=== PATIENT | male | born 1955 | race Caucasian/White ===

== ENCOUNTER 2018-01-23 16:17 | Inpatient (IN) | payer MEDICAID ==
[~2018-01-23] VITALS: Ht 182.9 cm; Wt 74.1 kg
[2018-01-23] MEDS ORDERED: normal saline 1000ML IV soln IV ONE (18:10)
[2018-01-23] MEDS ORDERED: morphine 4 MG/ML inj SYRINge IV ONE (18:10)
[2018-01-23] MEDS ORDERED: ondansetron/PF 4mg/2ml inj IV ONE (18:10)
[2018-01-23 19:08] LABS: BASOPHILS % (AUTO) 0.7 % (0-1); EOSINOPHILS # (AUTO) 0.1 X10'3 (0-0.9); EOSINOPHILS % (AUTO) 1.2 % (0-6); HEMATOCRIT 32.9 % (42.0-52.0); HEMOGLOBIN 11.3 g/dl (14.0-17.9); LYMPHOCYTES # (AUTO) 2.3 X10'3 (1.1-4.8); LYMPHOCYTES % (AUTO) 30.7 % (21-51); MEAN CORPUSCULAR HEMOGLOBIN 30.3 PG (27.0-31.0); MEAN CORPUSCULAR HGB CONC 34.2 % (33.0-36.5); MEAN CORPUSCULAR VOLUME 88.6 FL (78-98); MEAN PLATELET VOLUME 6.9 FL (7.4-10.4); MONOCYTES # (AUTO) 0.5 X10'3 (0-0.9); MONOCYTES % (AUTO) 6.5 % (2-12); NEUTROPHILS # (AUTO) 4.5 X10'3 (1.8-7.7); NEUTROPHILS % (AUTO) 60.9 % (42-75); PLATELET COUNT 350 X10'3 (140-440); RED BLOOD COUNT 3.71 X10'6 (4.70-6.10); RED CELL DISTRIBUTION WIDTH 14.9 % (11.5-14.5); WHITE BLOOD COUNT 7.4 X10'3 (4.5-11.0)
[2018-01-23 19:20] LABS: PARTIAL THROMBOPLASTIN TIME 28 SECONDS (22-32)
[2018-01-23 19:24] LABS: ALANINE AMINOTRANSFERASE 14 U/L (12-78); ALBUMIN 2.7 G/DL (3.4-5.0); ALBUMIN/GLOBULIN RATIO 0.5 (1.1-1.5); ALKALINE PHOSPHATASE 118 IU/L (46-116); ANION GAP 10 (8-16); ASPARTATE AMINO TRANSFERASE 26 U/L (10-37); BILIRUBIN,TOTAL 0.3 MG/DL (0.1-1.0); BLOOD UREA NITROGEN 10 MG/DL (7-18); BUN/CREATININE RATIO 7.7 (5.4-32.0); CALCIUM 8.7 MG/DL (8.5-10.1); CHLORIDE 101 MMOL/L (99-107); ETHANOL 0.125 GM/DL (0.0-0.010); GLUCOSE 93 MG/DL (70-104); MAGNESIUM 1.6 MG/DL (1.5-2.4); POTASSIUM 4.4 MMOL/L (3.5-5.1); SODIUM 137 MMOL/L (135-145); TOTAL CARBON DIOXIDE 26.2 MMOL/L (24-32); TOTAL PROTEIN 8.4 G/DL (6.4-8.2); eGFR 56 ML/MIN
[2018-01-23] MEDS ORDERED: NO HOME MEDS (19:58)
[2018-01-23] MEDS ORDERED: CefTRIAXone 2gm/NS 100ml IVPB 100 ML IV ONE (20:10)
[2018-01-23] MEDS ORDERED: vancomycin/NS 1 GM ADD-VANTAGE 250 ML X 1 DOSE IV ONE (20:15)
[2018-01-23] MEDS ORDERED: thiamine 100mg/ml 2ml inj. IV ONE (22:10)
[2018-01-23] MEDS ORDERED: acetaminophen 650mg rectal suppository RC PRN (22:10)
[2018-01-23] MEDS ORDERED: ondansetron/PF 4mg/2ml inj IV PRN (22:10)
[2018-01-23] MEDS ORDERED: magnesium hydroxide 30ml (MOM) UD suspension PO PRN (22:10)
[2018-01-23] MEDS ORDERED: bisacodyl 10mg suppository rectal RC PRN (22:10)
[2018-01-23] MEDS ORDERED: diphenhydrAMINE 25mg capsule PO PRN (22:10)
[2018-01-23] MEDS ORDERED: morphine 2 MG/ML inj. syringe IV PRN ×2 (22:10)
[2018-01-23] MEDS ORDERED: diphenhydrAMINE 50 mg/ml inj IV PRN (22:10)
[2018-01-23] MEDS ORDERED: dextrose 50%-water 50ml dispensing syringe IV PRN (22:10)
[2018-01-23] MEDS ORDERED: mag hydrox/Alum hydrox/simeth 30ml oral suspension PO PRN (22:10)
[2018-01-23] MEDS ORDERED: acetaminophen 325mg tablet PO PRN ×2 (22:10)
[2018-01-23] MEDS ORDERED: haloperidol 5mg tablet PO PRN (22:10)
[2018-01-23] MEDS ORDERED: metoclopramide 5 mg/ml inj IV PRN (22:10)
[2018-01-23] MEDS ORDERED: haloperidol lactate 5mg/ml inj IM PRN (22:10)
[2018-01-23] MEDS ORDERED: HYDROmorphone inj. 0.5 MG/0.5 ML DISP.SYRIN IV PRN ×2 (22:10)
[2018-01-23] MEDS ORDERED: Permethrin Cream 60gm TP ONE (22:15)
[2018-01-23] MEDS: normal saline 1000ml 1,000 ML IV SCH (22:26)
[2018-01-23 22:43] LABS: PHOSPHORUS 3.3 MG/DL (2.3-4.5)
[2018-01-23 22:58] LABS: CLARITY,URINE Clear (Clear); COLOR,URINE Yellow (Yellow); GLUCOSE, URINE Negative (Neg); KETONES,URINE Negative (Neg); LEUKOCYTE ESTERASE ,URINE Large (Neg); NITRITES, URINE Negative (Neg); OCCULT BLOOD,URINE Moderate (Neg); PROTEIN,URINE Negative (Neg); UROBILINOGEN,URINE 0.2 E.U/dL (0.2-1.0)
[2018-01-23 23:04] LABS: UA COLLECTION TYPE URINAL
[2018-01-23 23:11] LABS: URINE AMPHETAMINE SCREEN NEGATIVE (Neg); URINE BARBITUATE SCREEN NEGATIVE (Neg); URINE BENZODIAZEPINES SCREEN NEGATIVE (Neg); URINE CANNABINOID SCREEN NEGATIVE (Neg); URINE COCAINE SCREEN NEGATIVE (Neg); URINE METHADONE SCREEN NEGATIVE (Neg); URINE OPIATE SCREEN POSITIVE (Neg); URINE PHENCYCLIDINE SCREEN NEGATIVE (Neg)
[2018-01-23 23:14] LABS: BACTERIA,URINE FEW /HPF (Neg); MUCUS STRANDS NONE SEEN /LPF (Neg); SQUAMOUS EPITHELIAL CELL,UR FEW /LPF (FEW)
[2018-01-24] MEDS: normal saline 1000ml 1,000 ML IV SCH ×2 (01:43→15:06)
[2018-01-24] MEDS ORDERED: piperacillin/tazo 4.5gm/100ml 100 ML IV ONE (01:43)
[2018-01-24] MEDS: piperacillin/tazo 4.5gm/100ml 100 ML IV SCH ×3 (01:52→15:06)
[2018-01-24 03:21] VITALS: BP 139/83
[2018-01-24 06:11] LABS: BASOPHILS # (AUTO) 0.1 X10'3 (0-0.2); BASOPHILS % (AUTO) 0.8 % (0-1); EOSINOPHILS # (AUTO) 0.1 X10'3 (0-0.9); EOSINOPHILS % (AUTO) 1.9 % (0-6); HEMOGLOBIN 9.4 g/dl (14.0-17.9); LYMPHOCYTES # (AUTO) 1.8 X10'3 (1.1-4.8); LYMPHOCYTES % (AUTO) 26.4 % (21-51); MEAN CORPUSCULAR HEMOGLOBIN 30.8 PG (27.0-31.0); MEAN CORPUSCULAR HGB CONC 34.9 % (33.0-36.5); MEAN CORPUSCULAR VOLUME 88.3 FL (78-98); MEAN PLATELET VOLUME 6.9 FL (7.4-10.4); MONOCYTES # (AUTO) 0.6 X10'3 (0-0.9); MONOCYTES % (AUTO) 9.3 % (2-12); NEUTROPHILS # (AUTO) 4.1 X10'3 (1.8-7.7); NEUTROPHILS % (AUTO) 61.6 % (42-75); PLATELET COUNT 269 X10'3 (140-440); RED BLOOD COUNT 3.06 X10'6 (4.70-6.10); RED CELL DISTRIBUTION WIDTH 15.1 % (11.5-14.5); WHITE BLOOD COUNT 6.7 X10'3 (4.5-11.0)
[2018-01-24 06:27] LABS: ALANINE AMINOTRANSFERASE 13 U/L (12-78); ALBUMIN/GLOBULIN RATIO 0.4 (1.1-1.5); ALKALINE PHOSPHATASE 88 IU/L (46-116); ANION GAP 8 (8-16); ASPARTATE AMINO TRANSFERASE 19 U/L (10-37); BILIRUBIN,TOTAL 0.3 MG/DL (0.1-1.0); BLOOD UREA NITROGEN 9 MG/DL (7-18); CALCIUM 7.8 MG/DL (8.5-10.1); CHLORIDE 107 MMOL/L (99-107); CREATININE 1.12 MG/DL (0.60-1.10); GLUCOSE 94 MG/DL (70-104); SODIUM 141 MMOL/L (135-145); TOTAL CARBON DIOXIDE 25.7 MMOL/L (24-32); TOTAL PROTEIN 6.5 G/DL (6.4-8.2); eGFR 66 ML/MIN
[2018-01-24 07:01] VITALS: BP 145/80
[2018-01-24] MEDS: heparin, porcine 5000 units/ml vial SQ SCH ×2 (08:40→20:45)
[2018-01-24] MEDS: pantoprazole 40mg Tablet.DR PO SCH (08:40)
[2018-01-24] MEDS: docusate sod 100mg capsule PO SCH ×2 (08:40→20:44)
[2018-01-24] MEDS: HYDROcodone/acetaminophen 10/325mg tab PO PRN ×2 (08:59→17:27)
[2018-01-24] MEDS: vancomycin/NS 1 GM ADD-VANTAGE 250 ML IV SCH ×2 (10:15→20:44)
[2018-01-24 11:00] VITALS: BP 145/78
[2018-01-24] MEDS ORDERED: folic acid 1mg tablet PO ONE (15:30)
[2018-01-24] MEDS ORDERED: Ivermectin 3mg tablet PO SCH (15:30)
[2018-01-24] MEDS ORDERED: thiamine 100mg tablet PO ONE (15:30)
[2018-01-24] MEDS: lactobacillus rhamnosus 10,000 MMU CELLS/CAPSULE PO SCH (17:20)
[2018-01-24 19:30] VITALS: BP 153/86
[2018-01-25] VITALS: BP 151/92
[2018-01-25] MEDS: piperacillin/tazo 4.5gm/100ml 100 ML IV SCH ×3 (00:06→16:45)
[2018-01-25] MEDS: temazepam 15mg capsule PO PRN (00:49)
[2018-01-25] MEDS: HYDROcodone/acetaminophen 10/325mg tab PO PRN ×3 (00:50→16:45)
[2018-01-25] MEDS: normal saline 1000ml 1,000 ML IV SCH ×3 (04:38→17:45)
[2018-01-25 07:00] VITALS: BP 146/90
[2018-01-25] MEDS ORDERED: VANCOMYCIN LEVEL IV ONE (07:30)
[2018-01-25] MEDS: heparin, porcine 5000 units/ml vial SQ SCH ×2 (08:00→19:47)
[2018-01-25] MEDS: docusate sod 100mg capsule PO SCH ×2 (08:46→19:46)
[2018-01-25] MEDS: thiamine 100mg tablet PO SCH (08:46)
[2018-01-25] MEDS: folic acid 1mg tablet PO SCH (08:46)
[2018-01-25] MEDS: LORazepam 2 mg/ml vial IV PRN ×2 (08:51→19:47)
[2018-01-25] MEDS: lactobacillus rhamnosus 10,000 MMU CELLS/CAPSULE PO SCH ×2 (08:58→16:45)
[2018-01-25] MEDS: pantoprazole 40mg Tablet.DR PO SCH (08:59)
[2018-01-25 09:38] LABS: ALANINE AMINOTRANSFERASE 7 U/L (12-78); ALBUMIN 2.1 G/DL (3.4-5.0); ALBUMIN/GLOBULIN RATIO 0.4 (1.1-1.5); ALKALINE PHOSPHATASE 80 IU/L (46-116); ANION GAP 9 (8-16); ASPARTATE AMINO TRANSFERASE 20 U/L (10-37); BILIRUBIN,TOTAL 0.4 MG/DL (0.1-1.0); BLOOD UREA NITROGEN 9 MG/DL (7-18); BUN/CREATININE RATIO 7.3 (5.4-32.0); CALCIUM 8.1 MG/DL (8.5-10.1); CHLORIDE 106 MMOL/L (99-107); CREATININE 1.23 MG/DL (0.60-1.10); GLUCOSE 126 MG/DL (70-104); POTASSIUM 3.7 MMOL/L (3.5-5.1); SODIUM 140 MMOL/L (135-145); TOTAL PROTEIN 6.8 G/DL (6.4-8.2); VANCOMYCIN,TROUGH 16.9 UG/ML (6.0-14.0); eGFR 59 ML/MIN
[2018-01-25] MEDS: vancomycin/NS 1 GM ADD-VANTAGE 250 ML IV SCH ×2 (09:49→19:46)
[2018-01-25 09:50] LABS: BASOPHILS % (AUTO) 0.6 % (0-1); EOSINOPHILS # (AUTO) 0.3 X10'3 (0-0.9); EOSINOPHILS % (AUTO) 4.8 % (0-6); HEMATOCRIT 28.1 % (42.0-52.0); HEMOGLOBIN 9.4 g/dl (14.0-17.9); LYMPHOCYTES # (AUTO) 1.3 X10'3 (1.1-4.8); MEAN CORPUSCULAR HEMOGLOBIN 30.3 PG (27.0-31.0); MEAN CORPUSCULAR HGB CONC 33.4 % (33.0-36.5); MEAN CORPUSCULAR VOLUME 90.5 FL (78-98); MEAN PLATELET VOLUME 7.4 FL (7.4-10.4); MONOCYTES # (AUTO) 0.4 X10'3 (0-0.9); MONOCYTES % (AUTO) 6.6 % (2-12); NEUTROPHILS # (AUTO) 3.8 X10'3 (1.8-7.7); PLATELET COUNT 270 X10'3 (140-440); RED BLOOD COUNT 3.11 X10'6 (4.70-6.10); RED CELL DISTRIBUTION WIDTH 14.6 % (11.5-14.5); WHITE BLOOD COUNT 5.7 X10'3 (4.5-11.0)
[2018-01-25 11:00] VITALS: BP 146/79
[2018-01-25] MEDS ORDERED: Ivermectin 3mg tablet PO ONE (15:50)
[2018-01-25] MEDS ORDERED: gadopentetate dimeglumine 7.5 MMOL/15 ML syringe ONE (15:59)
[2018-01-25 18:04] LABS: % IRON SATURATION 9 % (11-46); IRON 19 UG/DL (53-167); TOTAL IRON BINDING CAPACITY 205 UG/DL (259-388)
[2018-01-25 19:00] VITALS: BP 168/104
[2018-01-25] MEDS ORDERED: LORazepam 2 mg/ml vial IV PRN (22:10)
[2018-01-25] MEDS ORDERED: LORazepam 1 MG tablet PO PRN (22:10)
[2018-01-26 00:33] VITALS: BP 147/97
[2018-01-26] MEDS: normal saline 1000ml 1,000 ML IV SCH ×2 (05:55→16:47)
[2018-01-26 06:43] LABS: ALANINE AMINOTRANSFERASE 12 U/L (12-78); ALBUMIN 2.1 G/DL (3.4-5.0); ALBUMIN/GLOBULIN RATIO 0.5 (1.1-1.5); ALKALINE PHOSPHATASE 68 IU/L (46-116); ANION GAP 8 (8-16); ASPARTATE AMINO TRANSFERASE 19 U/L (10-37); BILIRUBIN,TOTAL 0.4 MG/DL (0.1-1.0); BLOOD UREA NITROGEN 8 MG/DL (7-18); BUN/CREATININE RATIO 6.3 (5.4-32.0); CALCIUM 8.1 MG/DL (8.5-10.1); CHLORIDE 106 MMOL/L (99-107); CREATININE 1.27 MG/DL (0.60-1.10); GLUCOSE 101 MG/DL (70-104); POTASSIUM 3.7 MMOL/L (3.5-5.1); SODIUM 139 MMOL/L (135-145); TOTAL CARBON DIOXIDE 25.1 MMOL/L (24-32); TOTAL PROTEIN 6.7 G/DL (6.4-8.2); eGFR 57 ML/MIN
[2018-01-26 06:51] LABS: BASOPHILS % (AUTO) 0.5 % (0-1); EOSINOPHILS # (AUTO) 0.4 X10'3 (0-0.9); EOSINOPHILS % (AUTO) 5.3 % (0-6); HEMATOCRIT 27.5 % (42.0-52.0); HEMOGLOBIN 9.3 g/dl (14.0-17.9); LYMPHOCYTES # (AUTO) 1.5 X10'3 (1.1-4.8); MEAN CORPUSCULAR HEMOGLOBIN 30.3 PG (27.0-31.0); MEAN CORPUSCULAR HGB CONC 33.7 % (33.0-36.5); MEAN CORPUSCULAR VOLUME 89.9 FL (78-98); MEAN PLATELET VOLUME 7.1 FL (7.4-10.4); MONOCYTES # (AUTO) 0.4 X10'3 (0-0.9); MONOCYTES % (AUTO) 5.1 % (2-12); NEUTROPHILS % (AUTO) 69.1 % (42-75); PLATELET COUNT 266 X10'3 (140-440); RED BLOOD COUNT 3.05 X10'6 (4.70-6.10); RED CELL DISTRIBUTION WIDTH 14.6 % (11.5-14.5); WHITE BLOOD COUNT 7.3 X10'3 (4.5-11.0)
[2018-01-26 07:30] VITALS: BP 167/114
[2018-01-26] MEDS: lactobacillus rhamnosus 10,000 MMU CELLS/CAPSULE PO SCH ×2 (07:42→20:54)
[2018-01-26] MEDS: docusate sod 100mg capsule PO SCH ×2 (07:42→20:54)
[2018-01-26] MEDS: pantoprazole 40mg Tablet.DR PO SCH (07:42)
[2018-01-26] MEDS: piperacillin/tazo 4.5gm/100ml 100 ML IV SCH ×3 (07:42→16:47)
[2018-01-26] MEDS: thiamine 100mg tablet PO SCH (07:43)
[2018-01-26] MEDS: folic acid 1mg tablet PO SCH (07:43)
[2018-01-26] MEDS: heparin, porcine 5000 units/ml vial SQ SCH ×2 (07:44→20:54)
[2018-01-26] MEDS: amLODIPine 5mg tablet PO SCH (07:50)
[2018-01-26] MEDS: vancomycin/NS 1 GM ADD-VANTAGE 250 ML IV SCH ×2 (11:29→20:53)
[2018-01-26 12:00] VITALS: BP 147/69
[2018-01-26 19:00] VITALS: BP 161/100
[2018-01-26] MEDS: cloNIDine 0.1 mg tablet PO PRN (19:13)
[2018-01-26] MEDS: HYDROcodone/acetaminophen 10/325mg tab PO PRN (19:13)
[2018-01-26] MEDS: temazepam 15mg capsule PO PRN (22:22)
[2018-01-27] VITALS: BP 138/87
[2018-01-27] MEDS: piperacillin/tazo 4.5gm/100ml 100 ML IV SCH ×4 (00:24→23:54)
[2018-01-27] MEDS: normal saline 1000ml 1,000 ML IV SCH ×2 (05:05→17:35)
[2018-01-27 05:59] LABS: BASOPHILS % (AUTO) 0.5 % (0-1); EOSINOPHILS # (AUTO) 0.4 X10'3 (0-0.9); EOSINOPHILS % (AUTO) 5.4 % (0-6); HEMATOCRIT 25.7 % (42.0-52.0); HEMOGLOBIN 8.9 g/dl (14.0-17.9); LYMPHOCYTES # (AUTO) 1.7 X10'3 (1.1-4.8); LYMPHOCYTES % (AUTO) 24.1 % (21-51); MEAN CORPUSCULAR HEMOGLOBIN 30.6 PG (27.0-31.0); MEAN CORPUSCULAR HGB CONC 34.6 % (33.0-36.5); MEAN CORPUSCULAR VOLUME 88.3 FL (78-98); MEAN PLATELET VOLUME 6.7 FL (7.4-10.4); MONOCYTES # (AUTO) 0.4 X10'3 (0-0.9); NEUTROPHILS # (AUTO) 4.5 X10'3 (1.8-7.7); PLATELET COUNT 304 X10'3 (140-440); RED BLOOD COUNT 2.92 X10'6 (4.70-6.10); RED CELL DISTRIBUTION WIDTH 14.6 % (11.5-14.5)
[2018-01-27 07:06] LABS: ALANINE AMINOTRANSFERASE 7 U/L (12-78); ALBUMIN/GLOBULIN RATIO 0.4 (1.1-1.5); ALKALINE PHOSPHATASE 59 IU/L (46-116); ANION GAP 9 (8-16); ASPARTATE AMINO TRANSFERASE 19 U/L (10-37); BILIRUBIN,TOTAL 0.4 MG/DL (0.1-1.0); BLOOD UREA NITROGEN 6 MG/DL (7-18); BUN/CREATININE RATIO 5.1 (5.4-32.0); CALCIUM 8.1 MG/DL (8.5-10.1); CHLORIDE 106 MMOL/L (99-107); CREATININE 1.18 MG/DL (0.60-1.10); GLUCOSE 89 MG/DL (70-104); POTASSIUM 3.2 MMOL/L (3.5-5.1); SODIUM 141 MMOL/L (135-145); TOTAL PROTEIN 6.9 G/DL (6.4-8.2); eGFR 62 ML/MIN
[2018-01-27 07:23] VITALS: BP 137/83
[2018-01-27] MEDS: docusate sod 100mg capsule PO SCH ×2 (08:47→20:44)
[2018-01-27] MEDS: folic acid 1mg tablet PO SCH (08:47)
[2018-01-27] MEDS: lactobacillus rhamnosus 10,000 MMU CELLS/CAPSULE PO SCH ×2 (08:47→20:44)
[2018-01-27] MEDS: thiamine 100mg tablet PO SCH (08:47)
[2018-01-27] MEDS: amLODIPine 5mg tablet PO SCH (08:47)
[2018-01-27] MEDS: heparin, porcine 5000 units/ml vial SQ SCH ×2 (08:48→20:45)
[2018-01-27] MEDS: HYDROcodone/acetaminophen 10/325mg tab PO PRN ×2 (08:54→18:34)
[2018-01-27] MEDS: pantoprazole 40mg Tablet.DR PO SCH (08:54)
[2018-01-27] MEDS: vancomycin/NS 1 GM ADD-VANTAGE 250 ML IV SCH ×2 (10:34→20:43)
[2018-01-27 11:32] VITALS: BP 151/95
[2018-01-27] MEDS ORDERED: magnesium 4gm in 100ml NS 100 ML IV PRN (18:05)
[2018-01-27] MEDS ORDERED: potassium Cl 20 mEq SR tablet PO PRN (18:05)
[2018-01-27] MEDS ORDERED: potassium Cl 40MEQ/NS 500ml 500 ML IV PRN ×2 (18:05)
[2018-01-27] MEDS ORDERED: magnesium 2GM in 50ml NS 50 ML IV PRN (18:05)
[2018-01-27 19:00] VITALS: BP 161/104
[2018-01-27] MEDS ORDERED: potassium chloride 8mEq ER tablet PO ONE (20:00)
[2018-01-27] MEDS: cloNIDine 0.1 mg tablet PO PRN (20:44)
[2018-01-27] MEDS ORDERED: LORazepam 1 MG tablet PO PRN (22:10)
[2018-01-27] MEDS ORDERED: LORazepam 2 mg/ml vial IV PRN (22:10)
[2018-01-27] MEDS: HYDROcodone/acetaminophen 5mg/325mg tablet PO PRN (23:56)
[2018-01-28] VITALS: BP 137/99
[2018-01-28] MEDS: normal saline 1000ml 1,000 ML IV SCH ×2 (05:15→12:06)
[2018-01-28 05:51] LABS: BASOPHILS % (AUTO) 0.7 % (0-1); EOSINOPHILS # (AUTO) 0.4 X10'3 (0-0.9); EOSINOPHILS % (AUTO) 6.9 % (0-6); HEMATOCRIT 25.1 % (42.0-52.0); HEMOGLOBIN 8.6 g/dl (14.0-17.9); LYMPHOCYTES # (AUTO) 1.8 X10'3 (1.1-4.8); LYMPHOCYTES % (AUTO) 31.9 % (21-51); MEAN CORPUSCULAR HEMOGLOBIN 30.6 PG (27.0-31.0); MEAN CORPUSCULAR HGB CONC 34.3 % (33.0-36.5); MEAN CORPUSCULAR VOLUME 89.3 FL (78-98); MEAN PLATELET VOLUME 6.9 FL (7.4-10.4); MONOCYTES # (AUTO) 0.4 X10'3 (0-0.9); MONOCYTES % (AUTO) 7.1 % (2-12); NEUTROPHILS % (AUTO) 53.4 % (42-75); PLATELET COUNT 286 X10'3 (140-440); RED BLOOD COUNT 2.81 X10'6 (4.70-6.10); RED CELL DISTRIBUTION WIDTH 14.7 % (11.5-14.5); WHITE BLOOD COUNT 5.6 X10'3 (4.5-11.0)
[2018-01-28 06:30] LABS: ALANINE AMINOTRANSFERASE 13 U/L (12-78); ALBUMIN/GLOBULIN RATIO 0.5 (1.1-1.5); ALKALINE PHOSPHATASE 55 IU/L (46-116); ANION GAP 11 (8-16); ASPARTATE AMINO TRANSFERASE 19 U/L (10-37); BILIRUBIN,TOTAL 0.4 MG/DL (0.1-1.0); BLOOD UREA NITROGEN 6 MG/DL (7-18); BUN/CREATININE RATIO 5.5 (5.4-32.0); CALCIUM 7.7 MG/DL (8.5-10.1); CHLORIDE 107 MMOL/L (99-107); GLUCOSE 82 MG/DL (70-104); MAGNESIUM 1.4 MG/DL (1.5-2.4); POTASSIUM 3.4 MMOL/L (3.5-5.1); SODIUM 142 MMOL/L (135-145); TOTAL PROTEIN 6.4 G/DL (6.4-8.2); eGFR 68 ML/MIN
[2018-01-28 07:33] VITALS: BP 154/64
[2018-01-28] MEDS: HYDROcodone/acetaminophen 10/325mg tab PO PRN ×3 (07:46→20:06)
[2018-01-28] MEDS: thiamine 100mg tablet PO SCH (07:46)
[2018-01-28] MEDS: docusate sod 100mg capsule PO SCH ×2 (07:46→20:07)
[2018-01-28] MEDS: lactobacillus rhamnosus 10,000 MMU CELLS/CAPSULE PO SCH ×2 (07:46→20:06)
[2018-01-28] MEDS: pantoprazole 40mg Tablet.DR PO SCH (07:46)
[2018-01-28] MEDS: amLODIPine 5mg tablet PO SCH (07:46)
[2018-01-28] MEDS: folic acid 1mg tablet PO SCH (07:46)
[2018-01-28] MEDS: piperacillin/tazo 4.5gm/100ml 100 ML IV SCH ×3 (07:46→23:55)
[2018-01-28] MEDS: heparin, porcine 5000 units/ml vial SQ SCH ×2 (07:47→20:07)
[2018-01-28] MEDS: potassium Cl 20 mEq SR tablet PO PRN ×3 (10:03→20:06)
[2018-01-28] MEDS: magnesium Cl slow-release 64mg tablet PO PRN ×2 (10:03→20:14)
[2018-01-28] MEDS: vancomycin/NS 1 GM ADD-VANTAGE 250 ML IV SCH ×2 (10:03→20:06)
[2018-01-28 11:39] VITALS: BP 133/80
[2018-01-28 19:00] VITALS: BP 148/98
[2018-01-29] VITALS: BP 148/92
[2018-01-29] MEDS: normal saline 1000ml 1,000 ML IV SCH ×3 (05:53→22:58)
[2018-01-29 07:00] VITALS: BP 161/101
[2018-01-29 08:05] LABS: MAGNESIUM 1.5 MG/DL (1.5-2.4)
[2018-01-29] MEDS: amLODIPine 5mg tablet PO SCH (08:37)
[2018-01-29] MEDS: folic acid 1mg tablet PO SCH (08:37)
[2018-01-29] MEDS: lactobacillus rhamnosus 10,000 MMU CELLS/CAPSULE PO SCH ×2 (08:37→20:50)
[2018-01-29] MEDS: piperacillin/tazo 4.5gm/100ml 100 ML IV SCH ×3 (08:37→23:33)
[2018-01-29] MEDS: thiamine 100mg tablet PO SCH (08:37)
[2018-01-29] MEDS: pantoprazole 40mg Tablet.DR PO SCH (08:37)
[2018-01-29] MEDS: docusate sod 100mg capsule PO SCH ×2 (08:37→20:00)
[2018-01-29] MEDS: heparin, porcine 5000 units/ml vial SQ SCH ×2 (08:38→20:51)
[2018-01-29] MEDS: vancomycin/NS 1 GM ADD-VANTAGE 250 ML IV SCH ×2 (08:38→20:50)
[2018-01-29] MEDS: HYDROcodone/acetaminophen 10/325mg tab PO PRN (10:41)
[2018-01-29 11:00] VITALS: BP 108/66
[2018-01-29] MEDS ORDERED: magnesium 2GM in 50ml NS 50 ML IV ONE (12:35)
[2018-01-29] MEDS: potassium Cl 20 mEq SR tablet PO PRN (13:47)
[2018-01-29 19:30] VITALS: BP 159/89
[2018-01-29] MEDS: temazepam 15mg capsule PO PRN (23:12)
[2018-01-29] MEDS: HYDROcodone/acetaminophen 5mg/325mg tablet PO PRN (23:12)
[2018-01-30] VITALS: BP 156/90
[2018-01-30] MEDS: normal saline 1000ml 1,000 ML IV SCH ×2 (04:06→14:10)
[2018-01-30 06:40] LABS: MAGNESIUM 1.7 MG/DL (1.5-2.4); POTASSIUM 3.9 MMOL/L (3.5-5.1)
[2018-01-30 07:00] VITALS: BP 154/100
[2018-01-30] MEDS: amLODIPine 5mg tablet PO SCH (07:45)
[2018-01-30] MEDS: piperacillin/tazo 4.5gm/100ml 100 ML IV SCH ×2 (07:46→16:09)
[2018-01-30] MEDS: vancomycin/NS 1 GM ADD-VANTAGE 250 ML IV SCH ×2 (07:46→21:35)
[2018-01-30] MEDS: docusate sod 100mg capsule PO SCH ×2 (07:46→21:39)
[2018-01-30] MEDS: folic acid 1mg tablet PO SCH (07:46)
[2018-01-30] MEDS: thiamine 100mg tablet PO SCH (07:46)
[2018-01-30] MEDS: lactobacillus rhamnosus 10,000 MMU CELLS/CAPSULE PO SCH ×2 (07:46→21:38)
[2018-01-30] MEDS: pantoprazole 40mg Tablet.DR PO SCH (07:46)
[2018-01-30] MEDS: heparin, porcine 5000 units/ml vial SQ SCH ×2 (07:47→21:41)
[2018-01-30] MEDS: HYDROcodone/acetaminophen 5mg/325mg tablet PO PRN ×2 (08:24→14:09)
[2018-01-30 11:00] VITALS: BP 144/86
[2018-01-30] MEDS: HYDROcodone/acetaminophen 10/325mg tab PO PRN (21:47)
[2018-01-30] MEDS: temazepam 15mg capsule PO PRN (21:47)
[2018-01-31] VITALS: BP 140/94
[2018-01-31] MEDS: normal saline 1000ml 1,000 ML IV SCH ×3 (00:06→17:52)
[2018-01-31] MEDS: piperacillin/tazo 4.5gm/100ml 100 ML IV SCH ×3 (00:27→15:46)
[2018-01-31 03:56] VITALS: BP 149/83
[2018-01-31 07:00] VITALS: BP 158/97
[2018-01-31] MEDS: docusate sod 100mg capsule PO SCH ×2 (07:50→20:00)
[2018-01-31] MEDS: lactobacillus rhamnosus 10,000 MMU CELLS/CAPSULE PO SCH ×2 (08:00→20:18)
[2018-01-31] MEDS: amLODIPine 5mg tablet PO SCH (08:00)
[2018-01-31] MEDS: thiamine 100mg tablet PO SCH (08:00)
[2018-01-31] MEDS: pantoprazole 40mg Tablet.DR PO SCH (08:01)
[2018-01-31] MEDS: HYDROcodone/acetaminophen 10/325mg tab PO PRN ×2 (08:01→15:46)
[2018-01-31] MEDS: folic acid 1mg tablet PO SCH (08:01)
[2018-01-31] MEDS: heparin, porcine 5000 units/ml vial SQ SCH ×2 (08:01→20:19)
[2018-01-31] MEDS: vancomycin/NS 1 GM ADD-VANTAGE 250 ML IV SCH ×2 (08:49→20:18)
[2018-01-31 14:34] LABS: ALBUMIN 2.5 G/DL (3.4-5.0); ANION GAP 9 (8-16); BLOOD UREA NITROGEN 5 MG/DL (7-18); CALCIUM 8.6 MG/DL (8.5-10.1); CHLORIDE 105 MMOL/L (99-107); CREATININE 1.25 MG/DL (0.60-1.10); GLUCOSE 108 MG/DL (70-104); MAGNESIUM 1.6 MG/DL (1.5-2.4); POTASSIUM 3.3 MMOL/L (3.5-5.1); SODIUM 140 MMOL/L (135-145); TOTAL CARBON DIOXIDE 25.7 MMOL/L (24-32); eGFR 58 ML/MIN
[2018-01-31] MEDS ORDERED: potassium chloride 8mEq ER tablet PO ONE (14:55)
[2018-01-31] MEDS ORDERED: Ivermectin 3mg tablet PO SCH (16:00)
[2018-01-31 19:30] VITALS: BP 152/71
[2018-02-01] VITALS: BP 151/87
[2018-02-01] MEDS: piperacillin/tazo 4.5gm/100ml 100 ML IV SCH ×4 (00:12→23:54)
[2018-02-01] MEDS: normal saline 1000ml 1,000 ML IV SCH ×3 (06:01→18:06)
[2018-02-01 06:05] LABS: BASOPHILS # (AUTO) 0.1 X10'3 (0-0.2); BASOPHILS % (AUTO) 0.9 % (0-1); EOSINOPHILS # (AUTO) 0.3 X10'3 (0-0.9); HEMATOCRIT 28.9 % (42.0-52.0); HEMOGLOBIN 9.8 g/dl (14.0-17.9); LYMPHOCYTES # (AUTO) 1.8 X10'3 (1.1-4.8); LYMPHOCYTES % (AUTO) 27.6 % (21-51); MEAN CORPUSCULAR HGB CONC 33.8 % (33.0-36.5); MEAN CORPUSCULAR VOLUME 88.8 FL (78-98); MEAN PLATELET VOLUME 6.6 FL (7.4-10.4); MONOCYTES # (AUTO) 0.4 X10'3 (0-0.9); NEUTROPHILS % (AUTO) 60.5 % (42-75); PLATELET COUNT 353 X10'3 (140-440); RED BLOOD COUNT 3.25 X10'6 (4.70-6.10); RED CELL DISTRIBUTION WIDTH 14.2 % (11.5-14.5); WHITE BLOOD COUNT 6.7 X10'3 (4.5-11.0)
[2018-02-01 06:14] LABS: MAGNESIUM 1.5 MG/DL (1.5-2.4); POTASSIUM 3.5 MMOL/L (3.5-5.1)
[2018-02-01 07:00] VITALS: BP 153/85
[2018-02-01] MEDS: pantoprazole 40mg Tablet.DR PO SCH (07:47)
[2018-02-01] MEDS: HYDROcodone/acetaminophen 10/325mg tab PO PRN ×2 (10:02→20:29)
[2018-02-01] MEDS: thiamine 100mg tablet PO SCH (10:02)
[2018-02-01] MEDS: amLODIPine 5mg tablet PO SCH (10:03)
[2018-02-01] MEDS: folic acid 1mg tablet PO SCH (10:03)
[2018-02-01] MEDS: lactobacillus rhamnosus 10,000 MMU CELLS/CAPSULE PO SCH ×2 (10:03→20:30)
[2018-02-01] MEDS: docusate sod 100mg capsule PO SCH ×2 (10:04→20:00)
[2018-02-01] MEDS: vancomycin/NS 1 GM ADD-VANTAGE 250 ML IV SCH ×2 (10:04→20:29)
[2018-02-01] MEDS: heparin, porcine 5000 units/ml vial SQ SCH ×2 (10:07→20:30)
[2018-02-01 11:30] VITALS: BP 153/102
[2018-02-01 20:00] VITALS: BP 163/89
[2018-02-01] MEDS: olanzapine 10mg tablet PO SCH (20:30)
[2018-02-02] VITALS: BP 147/96
[2018-02-02] MEDS: normal saline 1000ml 1,000 ML IV SCH ×2 (05:50→12:30)
[2018-02-02 07:00] VITALS: BP 142/96
[2018-02-02] MEDS: docusate sod 100mg capsule PO SCH ×2 (07:15→20:00)
[2018-02-02] MEDS: pantoprazole 40mg Tablet.DR PO SCH (07:20)
[2018-02-02] MEDS: piperacillin/tazo 4.5gm/100ml 100 ML IV SCH ×2 (07:21→14:58)
[2018-02-02] MEDS: vancomycin/NS 1 GM ADD-VANTAGE 250 ML IV SCH ×2 (08:37→20:20)
[2018-02-02] MEDS: lactobacillus rhamnosus 10,000 MMU CELLS/CAPSULE PO SCH ×2 (08:40→20:20)
[2018-02-02] MEDS: folic acid 1mg tablet PO SCH (08:41)
[2018-02-02] MEDS: thiamine 100mg tablet PO SCH (08:41)
[2018-02-02] MEDS: amLODIPine 5mg tablet PO SCH (08:41)
[2018-02-02] MEDS: HYDROcodone/acetaminophen 10/325mg tab PO PRN ×3 (08:42→20:28)
[2018-02-02] MEDS: heparin, porcine 5000 units/ml vial SQ SCH ×2 (08:44→20:20)
[2018-02-02 11:00] VITALS: BP 122/75
[2018-02-02 20:00] VITALS: BP 151/88
[2018-02-02] MEDS: olanzapine 10mg tablet PO SCH (20:20)
[2018-02-03] VITALS: BP 141/84
[2018-02-03] MEDS: normal saline 1000ml 1,000 ML IV SCH ×2 (00:15→16:28)
[2018-02-03] MEDS: piperacillin/tazo 4.5gm/100ml 100 ML IV SCH ×4 (00:15→23:38)
[2018-02-03 05:42] LABS: ALBUMIN 2.3 G/DL (3.4-5.0); ANION GAP 8 (8-16); BLOOD UREA NITROGEN 11 MG/DL (7-18); CALCIUM 8.7 MG/DL (8.5-10.1); CHLORIDE 108 MMOL/L (99-107); CREATININE 1.58 MG/DL (0.60-1.10); GLUCOSE 94 MG/DL (70-104); POTASSIUM 4.1 MMOL/L (3.5-5.1); SODIUM 140 MMOL/L (135-145); TOTAL CARBON DIOXIDE 24.5 MMOL/L (24-32); eGFR 45 ML/MIN
[2018-02-03 06:56] VITALS: BP 157/96
[2018-02-03] MEDS: folic acid 1mg tablet PO SCH (08:22)
[2018-02-03] MEDS: docusate sod 100mg capsule PO SCH ×2 (08:22→20:29)
[2018-02-03] MEDS: lactobacillus rhamnosus 10,000 MMU CELLS/CAPSULE PO SCH ×2 (08:22→20:30)
[2018-02-03] MEDS: thiamine 100mg tablet PO SCH (08:22)
[2018-02-03] MEDS: pantoprazole 40mg Tablet.DR PO SCH (08:22)
[2018-02-03] MEDS: amLODIPine 5mg tablet PO SCH (08:23)
[2018-02-03] MEDS: heparin, porcine 5000 units/ml vial SQ SCH ×2 (08:24→20:30)
[2018-02-03] MEDS: HYDROcodone/acetaminophen 5mg/325mg tablet PO PRN ×2 (08:30→16:38)
[2018-02-03] MEDS: vancomycin/NS 1 GM ADD-VANTAGE 250 ML IV SCH ×2 (10:01→20:29)
[2018-02-03 11:00] VITALS: BP 161/97
[2018-02-03] MEDS ORDERED: lisinopril 10 MG tablet PO ONE (15:30)
[2018-02-03] MEDS ORDERED: HYDROchlorothiazide 25mg tablet PO ONE (15:30)
[2018-02-03] MEDS ORDERED: VANCOMYCIN LEVEL IV ONE (19:30)
[2018-02-03 20:00] VITALS: BP 151/85
[2018-02-03] MEDS: olanzapine 10mg tablet PO SCH (20:30)
[2018-02-03] MEDS: HYDROcodone/acetaminophen 10/325mg tab PO PRN (22:00)
[2018-02-04] VITALS: BP 153/86
[2018-02-04] MEDS: normal saline 1000ml 1,000 ML IV SCH ×3 (05:42→16:23)
[2018-02-04 07:27] VITALS: BP 160/100
[2018-02-04] MEDS: lisinopril 10 MG tablet PO SCH (08:11)
[2018-02-04] MEDS: piperacillin/tazo 4.5gm/100ml 100 ML IV SCH ×3 (08:11→23:24)
[2018-02-04] MEDS: docusate sod 100mg capsule PO SCH ×2 (08:11→20:04)
[2018-02-04] MEDS: pantoprazole 40mg Tablet.DR PO SCH (08:11)
[2018-02-04] MEDS: amLODIPine 5mg tablet PO SCH (08:12)
[2018-02-04] MEDS: HYDROchlorothiazide 12.5mg capsule PO SCH (08:12)
[2018-02-04] MEDS: thiamine 100mg tablet PO SCH (08:12)
[2018-02-04] MEDS: folic acid 1mg tablet PO SCH (08:12)
[2018-02-04] MEDS: lactobacillus rhamnosus 10,000 MMU CELLS/CAPSULE PO SCH ×2 (08:12→20:04)
[2018-02-04] MEDS: HYDROcodone/acetaminophen 10/325mg tab PO PRN ×2 (08:13→20:04)
[2018-02-04] MEDS: heparin, porcine 5000 units/ml vial SQ SCH ×2 (08:14→20:03)
[2018-02-04 11:24] VITALS: BP 151/102
[2018-02-04 20:00] VITALS: BP 162/90
[2018-02-04] MEDS: olanzapine 10mg tablet PO SCH (20:04)
[2018-02-05] VITALS: BP 139/84
[2018-02-05 07:49] VITALS: BP 143/88
[2018-02-05] MEDS ORDERED: vancomycin/NS 1 GM ADD-VANTAGE 250 ML IV SCH (08:00)
[2018-02-05] MEDS: piperacillin/tazo 4.5gm/100ml 100 ML IV SCH (08:06)
[2018-02-05] MEDS: normal saline 1000ml 1,000 ML IV SCH ×2 (08:06→20:39)
[2018-02-05] MEDS: lisinopril 10 MG tablet PO SCH (08:07)
[2018-02-05] MEDS: lactobacillus rhamnosus 10,000 MMU CELLS/CAPSULE PO SCH ×2 (08:07→19:17)
[2018-02-05] MEDS: HYDROcodone/acetaminophen 5mg/325mg tablet PO PRN (08:07)
[2018-02-05] MEDS: thiamine 100mg tablet PO SCH (08:07)
[2018-02-05] MEDS: docusate sod 100mg capsule PO SCH ×2 (08:08→19:17)
[2018-02-05] MEDS: amLODIPine 5mg tablet PO SCH (08:08)
[2018-02-05] MEDS: pantoprazole 40mg Tablet.DR PO SCH (08:08)
[2018-02-05] MEDS: folic acid 1mg tablet PO SCH (08:08)
[2018-02-05] MEDS: HYDROchlorothiazide 12.5mg capsule PO SCH (08:09)
[2018-02-05] MEDS: vancomycin/NS 1 GM ADD-VANTAGE 250 ML IV SCH (09:23)
[2018-02-05] MEDS: heparin, porcine 5000 units/ml vial SQ SCH ×2 (09:24→19:17)
[2018-02-05 12:04] VITALS: BP 142/94
[2018-02-05] MEDS: metroNIDAZOLE 500mg tablet PO SCH ×2 (13:32→19:12)
[2018-02-05] MEDS: CefTRIAXone 2gm/NS 100ml IVPB 100 ML IV SCH (13:33)
[2018-02-05] MEDS: HYDROcodone/acetaminophen 10/325mg tab PO PRN (19:17)
[2018-02-05 20:00] VITALS: BP 160/97
[2018-02-05] MEDS: olanzapine 10mg tablet PO SCH (20:39)
[2018-02-06] VITALS: BP 151/85
[2018-02-06] MEDS: normal saline 1000ml 1,000 ML IV SCH ×3 (06:06→20:48)
[2018-02-06 06:10] LABS: ALANINE AMINOTRANSFERASE 18 U/L (12-78); ALBUMIN 2.3 G/DL (3.4-5.0); ALBUMIN/GLOBULIN RATIO 0.5 (1.1-1.5); ALKALINE PHOSPHATASE 46 IU/L (46-116); ANION GAP 13 (8-16); ASPARTATE AMINO TRANSFERASE 22 U/L (10-37); BILIRUBIN,TOTAL 0.2 MG/DL (0.1-1.0); BLOOD UREA NITROGEN 9 MG/DL (7-18); BUN/CREATININE RATIO 6.5 (5.4-32.0); CALCIUM 8.9 MG/DL (8.5-10.1); CHLORIDE 107 MMOL/L (99-107); CREATININE 1.39 MG/DL (0.60-1.10); GLUCOSE 115 MG/DL (70-104); POTASSIUM 3.3 MMOL/L (3.5-5.1); SODIUM 143 MMOL/L (135-145); TOTAL CARBON DIOXIDE 23.1 MMOL/L (24-32); TOTAL PROTEIN 7.4 G/DL (6.4-8.2); eGFR 52 ML/MIN
[2018-02-06 07:00] VITALS: BP 148/89
[2018-02-06] MEDS: metroNIDAZOLE 500mg tablet PO SCH ×2 (07:59→19:49)
[2018-02-06] MEDS: CefTRIAXone 2gm/NS 100ml IVPB 100 ML IV SCH (07:59)
[2018-02-06] MEDS: folic acid 1mg tablet PO SCH (07:59)
[2018-02-06] MEDS: thiamine 100mg tablet PO SCH (07:59)
[2018-02-06] MEDS: pantoprazole 40mg Tablet.DR PO SCH (07:59)
[2018-02-06] MEDS: lisinopril 10 MG tablet PO SCH (08:00)
[2018-02-06] MEDS: HYDROcodone/acetaminophen 10/325mg tab PO PRN ×2 (08:00→17:33)
[2018-02-06] MEDS: HYDROchlorothiazide 12.5mg capsule PO SCH (08:00)
[2018-02-06] MEDS: lactobacillus rhamnosus 10,000 MMU CELLS/CAPSULE PO SCH ×2 (08:00→19:50)
[2018-02-06] MEDS: docusate sod 100mg capsule PO SCH ×2 (08:00→19:50)
[2018-02-06] MEDS: amLODIPine 5mg tablet PO SCH (08:00)
[2018-02-06] MEDS: heparin, porcine 5000 units/ml vial SQ SCH ×2 (08:05→19:49)
[2018-02-06] MEDS: vancomycin/NS 1 GM ADD-VANTAGE 250 ML IV SCH (09:19)
[2018-02-06] MEDS ORDERED: potassium Cl 20 mEq SR tablet PO STA (10:45)
[2018-02-06 11:00] VITALS: BP 150/88
[2018-02-06 11:27] LABS: EOSINOPHILS # (AUTO) 0.2 X10'3 (0-0.9); EOSINOPHILS % (AUTO) 4.3 % (0-6); HEMATOCRIT 28.1 % (42.0-52.0); HEMOGLOBIN 9.6 g/dl (14.0-17.9); LYMPHOCYTES # (AUTO) 1.4 X10'3 (1.1-4.8); LYMPHOCYTES % (AUTO) 29.5 % (21-51); MEAN CORPUSCULAR HEMOGLOBIN 29.8 PG (27.0-31.0); MEAN CORPUSCULAR HGB CONC 34.1 % (33.0-36.5); MEAN CORPUSCULAR VOLUME 87.5 FL (78-98); MEAN PLATELET VOLUME 6.7 FL (7.4-10.4); MONOCYTES # (AUTO) 0.3 X10'3 (0-0.9); MONOCYTES % (AUTO) 5.6 % (2-12); NEUTROPHILS # (AUTO) 2.9 X10'3 (1.8-7.7); NEUTROPHILS % (AUTO) 59.6 % (42-75); PLATELET COUNT 358 X10'3 (140-440); RED BLOOD COUNT 3.21 X10'6 (4.70-6.10); RED CELL DISTRIBUTION WIDTH 13.6 % (11.5-14.5); WHITE BLOOD COUNT 4.9 X10'3 (4.5-11.0)
[2018-02-06] MEDS: olanzapine 10mg tablet PO SCH (19:50)
[2018-02-06 20:00] VITALS: BP 180/111
[2018-02-06] MEDS: cloNIDine 0.1 mg tablet PO PRN (20:48)
[2018-02-07] VITALS: BP 146/91
[2018-02-07 07:00] VITALS: BP 147/87
[2018-02-07] MEDS ORDERED: VANCOMYCIN LEVEL IV ONE (07:30)
[2018-02-07] MEDS: CefTRIAXone 2gm/NS 100ml IVPB 100 ML IV SCH (08:18)
[2018-02-07] MEDS: amLODIPine 5mg tablet PO SCH (09:17)
[2018-02-07] MEDS: HYDROchlorothiazide 12.5mg capsule PO SCH (09:17)
[2018-02-07] MEDS: HYDROcodone/acetaminophen 10/325mg tab PO PRN ×3 (09:17→20:11)
[2018-02-07] MEDS: lactobacillus rhamnosus 10,000 MMU CELLS/CAPSULE PO SCH ×2 (09:17→20:12)
[2018-02-07] MEDS: metroNIDAZOLE 500mg tablet PO SCH ×2 (09:17→20:12)
[2018-02-07] MEDS: lisinopril 10 MG tablet PO SCH (09:17)
[2018-02-07] MEDS: pantoprazole 40mg Tablet.DR PO SCH (09:17)
[2018-02-07] MEDS: thiamine 100mg tablet PO SCH (09:17)
[2018-02-07] MEDS: docusate sod 100mg capsule PO SCH ×2 (09:17→20:00)
[2018-02-07] MEDS: heparin, porcine 5000 units/ml vial SQ SCH ×2 (09:21→20:12)
[2018-02-07] MEDS: folic acid 1mg tablet PO SCH (09:23)
[2018-02-07] MEDS: vancomycin/NS 1 GM ADD-VANTAGE 250 ML IV SCH (09:25)
[2018-02-07 09:56] VITALS: BP 155/89
[2018-02-07] MEDS ORDERED: magnesium 2GM in 50ml NS 50 ML IV PRN (13:00)
[2018-02-07] MEDS: normal saline 1000ml 1,000 ML IV SCH ×2 (13:00→22:06)
[2018-02-07] MEDS ORDERED: potassium Cl 20 mEq SR tablet PO PRN ×2 (13:00)
[2018-02-07] MEDS ORDERED: magnesium 4gm in 100ml NS 100 ML IV PRN (13:00)
[2018-02-07] MEDS ORDERED: potassium Cl 40MEQ/NS 500ml 500 ML IV PRN ×2 (13:00)
[2018-02-07 14:01] VITALS: BP 140/60
[2018-02-07 17:25] LABS: BASOPHILS # (AUTO) 0.1 X10'3 (0-0.2); BASOPHILS % (AUTO) 0.8 % (0-1); EOSINOPHILS # (AUTO) 0.2 X10'3 (0-0.9); EOSINOPHILS % (AUTO) 4.1 % (0-6); HEMATOCRIT 28.6 % (42.0-52.0); HEMOGLOBIN 9.6 g/dl (14.0-17.9); LYMPHOCYTES # (AUTO) 1.4 X10'3 (1.1-4.8); LYMPHOCYTES % (AUTO) 23.6 % (21-51); MEAN CORPUSCULAR HEMOGLOBIN 29.4 PG (27.0-31.0); MEAN CORPUSCULAR HGB CONC 33.7 % (33.0-36.5); MEAN CORPUSCULAR VOLUME 87.3 FL (78-98); MEAN PLATELET VOLUME 6.6 FL (7.4-10.4); MONOCYTES # (AUTO) 0.4 X10'3 (0-0.9); MONOCYTES % (AUTO) 7.1 % (2-12); NEUTROPHILS # (AUTO) 3.9 X10'3 (1.8-7.7); NEUTROPHILS % (AUTO) 64.4 % (42-75); PLATELET COUNT 356 X10'3 (140-440); RED BLOOD COUNT 3.28 X10'6 (4.70-6.10)
[2018-02-07 17:35] LABS: ALBUMIN 2.5 G/DL (3.4-5.0); ANION GAP 8 (8-16); BLOOD UREA NITROGEN 9 MG/DL (7-18); BUN/CREATININE RATIO 7.8 (5.4-32.0); CALCIUM 8.9 MG/DL (8.5-10.1); CHLORIDE 106 MMOL/L (99-107); CREATININE 1.16 MG/DL (0.60-1.10); GLUCOSE 169 MG/DL (70-104); POTASSIUM 3.7 MMOL/L (3.5-5.1); SODIUM 139 MMOL/L (135-145); TOTAL CARBON DIOXIDE 24.9 MMOL/L (24-32); eGFR 64 ML/MIN
[2018-02-07 19:00] VITALS: BP 162/92
[2018-02-07] MEDS: olanzapine 10mg tablet PO SCH (20:12)
[2018-02-07] MEDS: cloNIDine 0.1 mg tablet PO PRN (20:12)
[2018-02-08] VITALS: BP 124/74
[2018-02-08 06:20] LABS: MAGNESIUM 1.2 MG/DL (1.5-2.4); POTASSIUM 3.7 MMOL/L (3.5-5.1)
[2018-02-08 07:27] VITALS: BP 152/92
[2018-02-08] MEDS: normal saline 1000ml 1,000 ML IV SCH ×2 (08:06→13:53)
[2018-02-08] MEDS: CefTRIAXone 2gm/NS 100ml IVPB 100 ML IV SCH (08:31)
[2018-02-08] MEDS: lactobacillus rhamnosus 10,000 MMU CELLS/CAPSULE PO SCH ×2 (08:38→20:30)
[2018-02-08] MEDS: amLODIPine 5mg tablet PO SCH (08:38)
[2018-02-08] MEDS: pantoprazole 40mg Tablet.DR PO SCH (08:39)
[2018-02-08] MEDS: HYDROchlorothiazide 12.5mg capsule PO SCH (08:39)
[2018-02-08] MEDS: metroNIDAZOLE 500mg tablet PO SCH ×2 (08:39→20:30)
[2018-02-08] MEDS: docusate sod 100mg capsule PO SCH ×2 (08:40→20:29)
[2018-02-08] MEDS: lisinopril 10 MG tablet PO SCH (08:40)
[2018-02-08] MEDS: thiamine 100mg tablet PO SCH (08:40)
[2018-02-08] MEDS: folic acid 1mg tablet PO SCH (08:40)
[2018-02-08] MEDS: heparin, porcine 5000 units/ml vial SQ SCH ×2 (08:42→20:31)
[2018-02-08] MEDS: magnesium Cl slow-release 64mg tablet PO PRN ×2 (08:56→20:29)
[2018-02-08] MEDS: HYDROcodone/acetaminophen 10/325mg tab PO PRN (08:57)
[2018-02-08 12:00] VITALS: BP 122/72
[2018-02-08 18:30] VITALS: BP 154/88
[2018-02-08] MEDS: HYDROcodone/acetaminophen 5mg/325mg tablet PO PRN (20:30)
[2018-02-08] MEDS: olanzapine 10mg tablet PO SCH (20:31)
[2018-02-09] VITALS: BP 130/78
[2018-02-09] MEDS: normal saline 1000ml 1,000 ML IV SCH ×2 (00:19→12:31)
[2018-02-09 06:15] LABS: BASOPHILS # (AUTO) 0.1 X10'3 (0-0.2); BASOPHILS % (AUTO) 1.1 % (0-1); EOSINOPHILS # (AUTO) 0.3 X10'3 (0-0.9); EOSINOPHILS % (AUTO) 5.2 % (0-6); HEMATOCRIT 26.4 % (42.0-52.0); LYMPHOCYTES % (AUTO) 33.7 % (21-51); MEAN CORPUSCULAR HEMOGLOBIN 29.2 PG (27.0-31.0); MEAN CORPUSCULAR HGB CONC 33.9 % (33.0-36.5); MEAN CORPUSCULAR VOLUME 86.2 FL (78-98); MEAN PLATELET VOLUME 7.3 FL (7.4-10.4); MONOCYTES # (AUTO) 0.6 X10'3 (0-0.9); MONOCYTES % (AUTO) 10.5 % (2-12); NEUTROPHILS # (AUTO) 2.9 X10'3 (1.8-7.7); NEUTROPHILS % (AUTO) 49.5 % (42-75); PLATELET COUNT 344 X10'3 (140-440); RED BLOOD COUNT 3.07 X10'6 (4.70-6.10); RED CELL DISTRIBUTION WIDTH 13.5 % (11.5-14.5); WHITE BLOOD COUNT 5.8 X10'3 (4.5-11.0)
[2018-02-09 06:35] LABS: ALANINE AMINOTRANSFERASE 13 U/L (12-78); ALBUMIN 2.5 G/DL (3.4-5.0); ALBUMIN/GLOBULIN RATIO 0.5 (1.1-1.5); ALKALINE PHOSPHATASE 45 IU/L (46-116); ANION GAP 12 (8-16); ASPARTATE AMINO TRANSFERASE 31 U/L (10-37); BILIRUBIN,TOTAL 0.2 MG/DL (0.1-1.0); BLOOD UREA NITROGEN 9 MG/DL (7-18); BUN/CREATININE RATIO 7.3 (5.4-32.0); CALCIUM 9.1 MG/DL (8.5-10.1); CHLORIDE 109 MMOL/L (99-107); CREATININE 1.23 MG/DL (0.60-1.10); GLUCOSE 101 MG/DL (70-104); MAGNESIUM 1.4 MG/DL (1.5-2.4); POTASSIUM 3.6 MMOL/L (3.5-5.1); SODIUM 143 MMOL/L (135-145); TOTAL CARBON DIOXIDE 22.1 MMOL/L (24-32); TOTAL PROTEIN 7.5 G/DL (6.4-8.2); eGFR 59 ML/MIN
[2018-02-09 07:29] VITALS: BP 146/85
[2018-02-09] MEDS: amLODIPine 5mg tablet PO SCH (07:43)
[2018-02-09] MEDS: magnesium Cl slow-release 64mg tablet PO PRN ×2 (07:43→22:33)
[2018-02-09] MEDS: docusate sod 100mg capsule PO SCH ×2 (07:43→20:59)
[2018-02-09] MEDS: thiamine 100mg tablet PO SCH (07:43)
[2018-02-09] MEDS: CefTRIAXone 2gm/NS 100ml IVPB 100 ML IV SCH (07:43)
[2018-02-09] MEDS: metroNIDAZOLE 500mg tablet PO SCH ×2 (07:43→20:58)
[2018-02-09] MEDS: lactobacillus rhamnosus 10,000 MMU CELLS/CAPSULE PO SCH ×2 (07:43→20:58)
[2018-02-09] MEDS: pantoprazole 40mg Tablet.DR PO SCH (07:43)
[2018-02-09] MEDS: lisinopril 10 MG tablet PO SCH (07:43)
[2018-02-09] MEDS: HYDROchlorothiazide 12.5mg capsule PO SCH (07:43)
[2018-02-09] MEDS: folic acid 1mg tablet PO SCH (07:43)
[2018-02-09] MEDS: heparin, porcine 5000 units/ml vial SQ SCH ×2 (07:44→20:57)
[2018-02-09] MEDS: HYDROcodone/acetaminophen 10/325mg tab PO PRN (08:02)
[2018-02-09 11:24] VITALS: BP 161/97
[2018-02-09] MEDS ORDERED: hyDRALAzine 10mg tablet PO PRN (11:30)
[2018-02-09] MEDS: mag hydrox/Alum hydrox/simeth 30ml oral suspension PO SCH (12:31)
[2018-02-09 20:00] VITALS: BP 163/89
[2018-02-09] MEDS: HYDROcodone/acetaminophen 5mg/325mg tablet PO PRN (20:58)
[2018-02-09] MEDS: olanzapine 10mg tablet PO SCH (22:09)
[2018-02-10] VITALS: BP 125/65
[2018-02-10] MEDS: normal saline 1000ml 1,000 ML IV SCH ×3 (00:04→23:02)
[2018-02-10 05:43] LABS: MAGNESIUM 1.5 MG/DL (1.5-2.4); POTASSIUM 3.6 MMOL/L (3.5-5.1)
[2018-02-10 07:40] VITALS: BP 154/98
[2018-02-10] MEDS: lactobacillus rhamnosus 10,000 MMU CELLS/CAPSULE PO SCH ×2 (07:57→23:02)
[2018-02-10] MEDS: lisinopril 10 MG tablet PO SCH (07:57)
[2018-02-10] MEDS: folic acid 1mg tablet PO SCH (07:57)
[2018-02-10] MEDS: HYDROcodone/acetaminophen 5mg/325mg tablet PO PRN ×2 (07:57→23:04)
[2018-02-10] MEDS: pantoprazole 40mg Tablet.DR PO SCH (07:57)
[2018-02-10] MEDS: amLODIPine 5mg tablet PO SCH (07:58)
[2018-02-10] MEDS: metroNIDAZOLE 500mg tablet PO SCH ×2 (07:58→23:04)
[2018-02-10] MEDS: thiamine 100mg tablet PO SCH (07:58)
[2018-02-10] MEDS: docusate sod 100mg capsule PO SCH ×2 (07:58→23:04)
[2018-02-10] MEDS: HYDROchlorothiazide 12.5mg capsule PO SCH (07:58)
[2018-02-10] MEDS: heparin, porcine 5000 units/ml vial SQ SCH ×2 (08:00→23:02)
[2018-02-10] MEDS: mag hydrox/Alum hydrox/simeth 30ml oral suspension PO SCH (08:00)
[2018-02-10] MEDS: CefTRIAXone 2gm/NS 100ml IVPB 100 ML IV SCH (08:01)
[2018-02-10 11:00] VITALS: BP 147/85
[2018-02-10 20:00] VITALS: BP 138/81
[2018-02-10] MEDS: olanzapine 10mg tablet PO SCH (23:04)
[2018-02-11] VITALS: BP 145/82
[2018-02-11 05:46] LABS: BASOPHILS # (AUTO) 0.1 X10'3 (0-0.2); EOSINOPHILS # (AUTO) 0.4 X10'3 (0-0.9); EOSINOPHILS % (AUTO) 6.9 % (0-6); HEMATOCRIT 25.9 % (42.0-52.0); HEMOGLOBIN 8.9 g/dl (14.0-17.9); LYMPHOCYTES # (AUTO) 2.2 X10'3 (1.1-4.8); LYMPHOCYTES % (AUTO) 42.3 % (21-51); MEAN CORPUSCULAR HEMOGLOBIN 29.1 PG (27.0-31.0); MEAN CORPUSCULAR HGB CONC 34.1 % (33.0-36.5); MEAN CORPUSCULAR VOLUME 85.2 FL (78-98); MEAN PLATELET VOLUME 7.3 FL (7.4-10.4); MONOCYTES # (AUTO) 0.5 X10'3 (0-0.9); MONOCYTES % (AUTO) 9.8 % (2-12); NEUTROPHILS # (AUTO) 2.1 X10'3 (1.8-7.7); PLATELET COUNT 379 X10'3 (140-440); RED BLOOD COUNT 3.04 X10'6 (4.70-6.10); RED CELL DISTRIBUTION WIDTH 13.9 % (11.5-14.5); WHITE BLOOD COUNT 5.2 X10'3 (4.5-11.0)
[2018-02-11 06:16] LABS: ALANINE AMINOTRANSFERASE 19 U/L (12-78); ALBUMIN 2.5 G/DL (3.4-5.0); ALBUMIN/GLOBULIN RATIO 0.5 (1.1-1.5); ALKALINE PHOSPHATASE 45 IU/L (46-116); ANION GAP 9 (8-16); ASPARTATE AMINO TRANSFERASE 36 U/L (10-37); BILIRUBIN,TOTAL 0.3 MG/DL (0.1-1.0); BLOOD UREA NITROGEN 8 MG/DL (7-18); BUN/CREATININE RATIO 6.9 (5.4-32.0); CALCIUM 8.9 MG/DL (8.5-10.1); CHLORIDE 108 MMOL/L (99-107); CREATININE 1.16 MG/DL (0.60-1.10); GLUCOSE 107 MG/DL (70-104); MAGNESIUM 1.4 MG/DL (1.5-2.4); POTASSIUM 3.5 MMOL/L (3.5-5.1); SODIUM 142 MMOL/L (135-145); TOTAL CARBON DIOXIDE 24.6 MMOL/L (24-32); TOTAL PROTEIN 7.4 G/DL (6.4-8.2); eGFR 64 ML/MIN
[2018-02-11 07:00] VITALS: BP 136/86
[2018-02-11] MEDS ORDERED: VANCOMYCIN LEVEL IV NR (07:30)
[2018-02-11] MEDS: heparin, porcine 5000 units/ml vial SQ SCH ×2 (10:18→21:23)
[2018-02-11] MEDS: mag hydrox/Alum hydrox/simeth 30ml oral suspension PO SCH (10:20)
[2018-02-11] MEDS: CefTRIAXone 2gm/NS 100ml IVPB 100 ML IV SCH (10:20)
[2018-02-11] MEDS: metroNIDAZOLE 500mg tablet PO SCH ×2 (10:21→21:20)
[2018-02-11] MEDS: folic acid 1mg tablet PO SCH (10:21)
[2018-02-11] MEDS: amLODIPine 5mg tablet PO SCH (10:21)
[2018-02-11] MEDS: lactobacillus rhamnosus 10,000 MMU CELLS/CAPSULE PO SCH ×2 (10:21→21:19)
[2018-02-11] MEDS: docusate sod 100mg capsule PO SCH ×2 (10:21→20:00)
[2018-02-11] MEDS: pantoprazole 40mg Tablet.DR PO SCH (10:22)
[2018-02-11] MEDS: lisinopril 10 MG tablet PO SCH (10:22)
[2018-02-11] MEDS: HYDROchlorothiazide 12.5mg capsule PO SCH (10:25)
[2018-02-11] MEDS: thiamine 100mg tablet PO SCH (10:25)
[2018-02-11] MEDS: HYDROcodone/acetaminophen 10/325mg tab PO PRN ×2 (10:28→21:19)
[2018-02-11] MEDS: normal saline 1000ml 1,000 ML IV SCH ×2 (10:30→16:06)
[2018-02-11 11:00] VITALS: BP 146/90
[2018-02-11 19:00] VITALS: BP 153/92
[2018-02-11] MEDS: olanzapine 10mg tablet PO SCH (21:20)
[2018-02-12] VITALS: BP 142/67
[2018-02-12] MEDS: normal saline 1000ml 1,000 ML IV SCH ×3 (02:06→19:58)
[2018-02-12 05:44] LABS: BASOPHILS # (AUTO) 0.1 X10'3 (0-0.2); BASOPHILS % (AUTO) 1.2 % (0-1); EOSINOPHILS # (AUTO) 0.4 X10'3 (0-0.9); EOSINOPHILS % (AUTO) 6.7 % (0-6); HEMATOCRIT 25.9 % (42.0-52.0); LYMPHOCYTES # (AUTO) 2.2 X10'3 (1.1-4.8); LYMPHOCYTES % (AUTO) 41.2 % (21-51); MEAN CORPUSCULAR HEMOGLOBIN 29.7 PG (27.0-31.0); MEAN CORPUSCULAR HGB CONC 34.8 % (33.0-36.5); MEAN CORPUSCULAR VOLUME 85.4 FL (78-98); MEAN PLATELET VOLUME 7.2 FL (7.4-10.4); MONOCYTES # (AUTO) 0.6 X10'3 (0-0.9); MONOCYTES % (AUTO) 10.9 % (2-12); NEUTROPHILS # (AUTO) 2.2 X10'3 (1.8-7.7); PLATELET COUNT 384 X10'3 (140-440); RED BLOOD COUNT 3.03 X10'6 (4.70-6.10); RED CELL DISTRIBUTION WIDTH 13.7 % (11.5-14.5); WHITE BLOOD COUNT 5.4 X10'3 (4.5-11.0)
[2018-02-12 06:24] LABS: MAGNESIUM 1.4 MG/DL (1.5-2.4); POTASSIUM 3.6 MMOL/L (3.5-5.1)
[2018-02-12] MEDS: CefTRIAXone 2gm/NS 100ml IVPB 100 ML IV SCH (07:16)
[2018-02-12] MEDS: HYDROcodone/acetaminophen 10/325mg tab PO PRN ×2 (07:31→19:48)
[2018-02-12] MEDS: heparin, porcine 5000 units/ml vial SQ SCH ×2 (07:32→19:48)
[2018-02-12] MEDS: lactobacillus rhamnosus 10,000 MMU CELLS/CAPSULE PO SCH ×2 (07:33→19:48)
[2018-02-12] MEDS: amLODIPine 5mg tablet PO SCH (07:34)
[2018-02-12] MEDS: docusate sod 100mg capsule PO SCH ×2 (07:34→19:49)
[2018-02-12] MEDS: HYDROchlorothiazide 12.5mg capsule PO SCH (07:35)
[2018-02-12] MEDS: folic acid 1mg tablet PO SCH (07:35)
[2018-02-12] MEDS: thiamine 100mg tablet PO SCH (07:36)
[2018-02-12] MEDS: pantoprazole 40mg Tablet.DR PO SCH (07:36)
[2018-02-12] MEDS: lisinopril 10 MG tablet PO SCH (07:37)
[2018-02-12] MEDS: metroNIDAZOLE 500mg tablet PO SCH ×2 (07:37→19:48)
[2018-02-12] MEDS: mag hydrox/Alum hydrox/simeth 30ml oral suspension PO SCH (07:38)
[2018-02-12 08:00] VITALS: BP 148/83
[2018-02-12] MEDS ORDERED: BARIUM SULFATE 340 ML SUSP.RECON***PROCEDURE AREA ONLY**DONT ENTER PO ONE (10:08)
[2018-02-12] MEDS ORDERED: VANCOMYCIN LEVEL IV ONE (11:30)
[2018-02-12 12:00] VITALS: BP 150/75
[2018-02-12] MEDS: vancomycin/NS 1 GM ADD-VANTAGE 250 ML IV SCH ×2 (12:42→23:44)
[2018-02-12 19:30] VITALS: BP 157/91
[2018-02-12] MEDS: olanzapine 10mg tablet PO SCH (23:43)
[2018-02-12] MEDS: temazepam 15mg capsule PO PRN (23:48)
[2018-02-13] VITALS (14 sets, daily range): BP systolic 115–163; BP diastolic 76–105
[2018-02-13 05:51] LABS: BASOPHILS # (AUTO) 0.1 X10'3 (0-0.2); BASOPHILS % (AUTO) 1.2 % (0-1); EOSINOPHILS # (AUTO) 0.4 X10'3 (0-0.9); EOSINOPHILS % (AUTO) 7.3 % (0-6); HEMATOCRIT 26.8 % (42.0-52.0); HEMOGLOBIN 9.6 g/dl (14.0-17.9); LYMPHOCYTES # (AUTO) 2.1 X10'3 (1.1-4.8); LYMPHOCYTES % (AUTO) 40.8 % (21-51); MEAN CORPUSCULAR HEMOGLOBIN 29.5 PG (27.0-31.0); MEAN CORPUSCULAR HGB CONC 35.6 % (33.0-36.5); MEAN CORPUSCULAR VOLUME 82.7 FL (78-98); MEAN PLATELET VOLUME 7.1 FL (7.4-10.4); MONOCYTES # (AUTO) 0.5 X10'3 (0-0.9); MONOCYTES % (AUTO) 9.4 % (2-12); NEUTROPHILS # (AUTO) 2.1 X10'3 (1.8-7.7); NEUTROPHILS % (AUTO) 41.3 % (42-75); PLATELET COUNT 405 X10'3 (140-440); RED BLOOD COUNT 3.24 X10'6 (4.70-6.10); RED CELL DISTRIBUTION WIDTH 13.9 % (11.5-14.5); WHITE BLOOD COUNT 5.1 X10'3 (4.5-11.0)
[2018-02-13 05:55] LABS: ALANINE AMINOTRANSFERASE 16 U/L (12-78); ALBUMIN 2.6 G/DL (3.4-5.0); ALBUMIN/GLOBULIN RATIO 0.5 (1.1-1.5); ALKALINE PHOSPHATASE 44 IU/L (46-116); ANION GAP 11 (8-16); ASPARTATE AMINO TRANSFERASE 27 U/L (10-37); BILIRUBIN,TOTAL 0.3 MG/DL (0.1-1.0); BLOOD UREA NITROGEN 12 MG/DL (7-18); BUN/CREATININE RATIO 10.4 (5.4-32.0); CALCIUM 9.3 MG/DL (8.5-10.1); CHLORIDE 107 MMOL/L (99-107); CREATININE 1.15 MG/DL (0.60-1.10); GLUCOSE 97 MG/DL (70-104); POTASSIUM 3.9 MMOL/L (3.5-5.1); SODIUM 142 MMOL/L (135-145); TOTAL CARBON DIOXIDE 24.4 MMOL/L (24-32); TOTAL PROTEIN 7.7 G/DL (6.4-8.2); eGFR 64 ML/MIN
[2018-02-13] MEDS: normal saline 1000ml 1,000 ML IV SCH ×2 (06:55→19:46)
[2018-02-13] MEDS: mag hydrox/Alum hydrox/simeth 30ml oral suspension PO SCH (08:00)
[2018-02-13] MEDS: lactobacillus rhamnosus 10,000 MMU CELLS/CAPSULE PO SCH ×2 (08:00→19:42)
[2018-02-13] MEDS: thiamine 100mg tablet PO SCH (08:00)
[2018-02-13] MEDS: folic acid 1mg tablet PO SCH (08:00)
[2018-02-13] MEDS: heparin, porcine 5000 units/ml vial SQ SCH ×2 (08:00→19:42)
[2018-02-13] MEDS: docusate sod 100mg capsule PO SCH ×2 (08:00→19:42)
[2018-02-13] MEDS: pantoprazole 40mg Tablet.DR PO SCH (08:55)
[2018-02-13] MEDS: HYDROchlorothiazide 12.5mg capsule PO SCH (08:55)
[2018-02-13] MEDS: metroNIDAZOLE 500mg tablet PO SCH ×2 (08:55→19:42)
[2018-02-13] MEDS: amLODIPine 5mg tablet PO SCH (08:55)
[2018-02-13] MEDS: lisinopril 10 MG tablet PO SCH (08:56)
[2018-02-13] MEDS: CefTRIAXone 2gm/NS 100ml IVPB 100 ML IV SCH (08:58)
[2018-02-13] MEDS: HYDROcodone/acetaminophen 10/325mg tab PO PRN ×2 (08:58→19:43)
[2018-02-13] MEDS ORDERED: MIDAZolam 5mg/ml 2ml vial ONE (11:46)
[2018-02-13] MEDS ORDERED: fentaNYL/PF 50MCG/1 ML 2ML syringe ONE (11:46)
[2018-02-13] MEDS ORDERED: LIDOcaine Viscous 15ml cup ONE (11:46)
[2018-02-13] MEDS: vancomycin/NS 1 GM ADD-VANTAGE 250 ML IV SCH ×2 (13:17→23:29)
[2018-02-13] MEDS: olanzapine 10mg tablet PO SCH (19:42)
[2018-02-13] MEDS ORDERED: VANCOMYCIN LEVEL IV ONE (23:30)
[2018-02-14] VITALS: BP 152/88
[2018-02-14] MEDS: normal saline 1000ml 1,000 ML IV SCH ×3 (03:49→23:41)
[2018-02-14] MEDS: HYDROcodone/acetaminophen 10/325mg tab PO PRN ×3 (06:05→20:34)
[2018-02-14 06:51] LABS: ALANINE AMINOTRANSFERASE 13 U/L (12-78); ALBUMIN 2.7 G/DL (3.4-5.0); ALBUMIN/GLOBULIN RATIO 0.5 (1.1-1.5); ALKALINE PHOSPHATASE 43 IU/L (46-116); ANION GAP 11 (8-16); ASPARTATE AMINO TRANSFERASE 28 U/L (10-37); BILIRUBIN,TOTAL 0.3 MG/DL (0.1-1.0); BLOOD UREA NITROGEN 12 MG/DL (7-18); BUN/CREATININE RATIO 10.6 (5.4-32.0); CALCIUM 9.4 MG/DL (8.5-10.1); CHLORIDE 107 MMOL/L (99-107); CREATININE 1.13 MG/DL (0.60-1.10); GLUCOSE 98 MG/DL (70-104); SODIUM 141 MMOL/L (135-145); TOTAL CARBON DIOXIDE 23.1 MMOL/L (24-32); TOTAL PROTEIN 7.7 G/DL (6.4-8.2); eGFR 66 ML/MIN
[2018-02-14 07:35] VITALS: BP 153/92
[2018-02-14] MEDS: CefTRIAXone 2gm/NS 100ml IVPB 100 ML IV SCH (08:49)
[2018-02-14] MEDS: thiamine 100mg tablet PO SCH (08:49)
[2018-02-14] MEDS: amLODIPine 5mg tablet PO SCH (08:49)
[2018-02-14] MEDS: lisinopril 10 MG tablet PO SCH (08:49)
[2018-02-14] MEDS: docusate sod 100mg capsule PO SCH ×2 (08:50→20:00)
[2018-02-14] MEDS: lactobacillus rhamnosus 10,000 MMU CELLS/CAPSULE PO SCH ×2 (08:50→20:32)
[2018-02-14] MEDS: mag hydrox/Alum hydrox/simeth 30ml oral suspension PO SCH (08:50)
[2018-02-14] MEDS: HYDROchlorothiazide 12.5mg capsule PO SCH (08:50)
[2018-02-14] MEDS: heparin, porcine 5000 units/ml vial SQ SCH ×2 (08:50→20:32)
[2018-02-14] MEDS: folic acid 1mg tablet PO SCH (08:50)
[2018-02-14] MEDS: metroNIDAZOLE 500mg tablet PO SCH ×2 (08:50→20:32)
[2018-02-14] MEDS: pantoprazole 40mg Tablet.DR PO SCH (08:52)
[2018-02-14 09:01] LABS: BASOPHILS % (AUTO) 0.9 % (0-1); EOSINOPHILS # (AUTO) 0.3 X10'3 (0-0.9); EOSINOPHILS % (AUTO) 6.7 % (0-6); HEMATOCRIT 25.8 % (42.0-52.0); HEMOGLOBIN 8.9 g/dl (14.0-17.9); LYMPHOCYTES # (AUTO) 1.4 X10'3 (1.1-4.8); LYMPHOCYTES % (AUTO) 27.5 % (21-51); MEAN CORPUSCULAR HGB CONC 34.5 % (33.0-36.5); MEAN CORPUSCULAR VOLUME 83.9 FL (78-98); MEAN PLATELET VOLUME 6.6 FL (7.4-10.4); MONOCYTES # (AUTO) 0.6 X10'3 (0-0.9); MONOCYTES % (AUTO) 11.7 % (2-12); NEUTROPHILS # (AUTO) 2.7 X10'3 (1.8-7.7); NEUTROPHILS % (AUTO) 53.2 % (42-75); PLATELET COUNT 399 X10'3 (140-440); RED BLOOD COUNT 3.07 X10'6 (4.70-6.10); WHITE BLOOD COUNT 5.2 X10'3 (4.5-11.0)
[2018-02-14 09:28] LABS: ALANINE AMINOTRANSFERASE 15 U/L (12-78); ALBUMIN 2.5 G/DL (3.4-5.0); ALBUMIN/GLOBULIN RATIO 0.5 (1.1-1.5); ALKALINE PHOSPHATASE 41 IU/L (46-116); ANION GAP 11 (8-16); ASPARTATE AMINO TRANSFERASE 28 U/L (10-37); BILIRUBIN,TOTAL 0.2 MG/DL (0.1-1.0); BLOOD UREA NITROGEN 11 MG/DL (7-18); CALCIUM 9.2 MG/DL (8.5-10.1); CHLORIDE 106 MMOL/L (99-107); CREATININE 1.22 MG/DL (0.60-1.10); GLUCOSE 173 MG/DL (70-104); POTASSIUM 3.7 MMOL/L (3.5-5.1); SODIUM 141 MMOL/L (135-145); TOTAL CARBON DIOXIDE 24.1 MMOL/L (24-32); TOTAL PROTEIN 7.3 G/DL (6.4-8.2); eGFR 60 ML/MIN
[2018-02-14 11:12] VITALS: BP 137/88
[2018-02-14] MEDS: VANCOMYCIN 750MG IV in NS 250 ML IV SCH ×2 (12:39→23:35)
[2018-02-14] MEDS: fluconazole 10 MG/1 ML 35ml oral suspension PO SCH (17:41)
[2018-02-14 19:00] VITALS: BP 160/97
[2018-02-14] MEDS ORDERED: mag hydrox/Alum hydrox/simeth 30ml oral suspension PO PRN (20:00)
[2018-02-14] MEDS: olanzapine 10mg tablet PO SCH (20:32)
[2018-02-14] MEDS: temazepam 15mg capsule PO PRN (23:40)
[2018-02-15 00:01] VITALS: BP 158/95
[2018-02-15 05:58] LABS: ALANINE AMINOTRANSFERASE 15 U/L (12-78); ALBUMIN 2.6 G/DL (3.4-5.0); ALBUMIN/GLOBULIN RATIO 0.5 (1.1-1.5); ALKALINE PHOSPHATASE 40 IU/L (46-116); ANION GAP 10 (8-16); ASPARTATE AMINO TRANSFERASE 30 U/L (10-37); BILIRUBIN,TOTAL 0.2 MG/DL (0.1-1.0); BLOOD UREA NITROGEN 8 MG/DL (7-18); BUN/CREATININE RATIO 7.6 (5.4-32.0); CALCIUM 9.2 MG/DL (8.5-10.1); CHLORIDE 107 MMOL/L (99-107); CREATININE 1.05 MG/DL (0.60-1.10); GLUCOSE 98 MG/DL (70-104); POTASSIUM 3.6 MMOL/L (3.5-5.1); SODIUM 141 MMOL/L (135-145); TOTAL CARBON DIOXIDE 24.3 MMOL/L (24-32); TOTAL PROTEIN 7.8 G/DL (6.4-8.2); eGFR 71 ML/MIN
[2018-02-15 08:36] VITALS: BP 170/94
[2018-02-15] MEDS: pantoprazole 40mg Tablet.DR PO SCH (09:07)
[2018-02-15] MEDS: docusate sod 100mg capsule PO SCH ×2 (09:07→20:28)
[2018-02-15] MEDS: metroNIDAZOLE 500mg tablet PO SCH ×2 (09:07→20:27)
[2018-02-15] MEDS: lactobacillus rhamnosus 10,000 MMU CELLS/CAPSULE PO SCH ×2 (09:07→20:27)
[2018-02-15] MEDS: amLODIPine 5mg tablet PO SCH (09:08)
[2018-02-15] MEDS: HYDROchlorothiazide 12.5mg capsule PO SCH (09:08)
[2018-02-15] MEDS: thiamine 100mg tablet PO SCH (09:08)
[2018-02-15] MEDS: lisinopril 10 MG tablet PO SCH (09:08)
[2018-02-15] MEDS: folic acid 1mg tablet PO SCH (09:08)
[2018-02-15] MEDS: heparin, porcine 5000 units/ml vial SQ SCH ×2 (09:09→20:28)
[2018-02-15] MEDS: HYDROcodone/acetaminophen 10/325mg tab PO PRN ×2 (10:03→20:28)
[2018-02-15] MEDS: normal saline 1000ml 1,000 ML IV SCH (10:04)
[2018-02-15] MEDS: CefTRIAXone 2gm/NS 100ml IVPB 100 ML IV SCH (10:33)
[2018-02-15] MEDS: fluconazole 10 MG/1 ML 35ml oral suspension PO SCH (10:34)
[2018-02-15 11:52] VITALS: BP 162/102
[2018-02-15] MEDS: VANCOMYCIN 750MG IV in NS 250 ML IV SCH (12:41)
[2018-02-15] MEDS ORDERED: amLODIPine 5mg tablet PO ONE (13:25)
[2018-02-15 14:00] VITALS: BP 140/80
[2018-02-15 19:00] VITALS: BP 157/94
[2018-02-15] MEDS: olanzapine 10mg tablet PO SCH (20:27)
[2018-02-15] MEDS ORDERED: VANCOMYCIN LEVEL IV ONE (23:30)
[2018-02-16] VITALS: BP 156/95
[2018-02-16] MEDS: VANCOMYCIN 750MG IV in NS 250 ML IV SCH ×3 (00:36→23:43)
[2018-02-16] MEDS: normal saline 1000ml 1,000 ML IV SCH ×2 (02:49→23:42)
[2018-02-16 06:30] LABS: BASOPHILS % (AUTO) 0.7 % (0-1); EOSINOPHILS # (AUTO) 0.5 X10'3 (0-0.9); HEMATOCRIT 27.1 % (42.0-52.0); HEMOGLOBIN 9.3 g/dl (14.0-17.9); LYMPHOCYTES # (AUTO) 1.4 X10'3 (1.1-4.8); LYMPHOCYTES % (AUTO) 26.8 % (21-51); MEAN CORPUSCULAR HEMOGLOBIN 28.8 PG (27.0-31.0); MEAN CORPUSCULAR HGB CONC 34.3 % (33.0-36.5); MEAN CORPUSCULAR VOLUME 83.9 FL (78-98); MEAN PLATELET VOLUME 7.2 FL (7.4-10.4); MONOCYTES # (AUTO) 0.9 X10'3 (0-0.9); MONOCYTES % (AUTO) 18.5 % (2-12); NEUTROPHILS # (AUTO) 2.3 X10'3 (1.8-7.7); PLATELET COUNT 377 X10'3 (140-440); RED BLOOD COUNT 3.23 X10'6 (4.70-6.10); RED CELL DISTRIBUTION WIDTH 13.9 % (11.5-14.5); WHITE BLOOD COUNT 5.1 X10'3 (4.5-11.0)
[2018-02-16 06:52] LABS: ALANINE AMINOTRANSFERASE 14 U/L (12-78); ALBUMIN 2.7 G/DL (3.4-5.0); ALBUMIN/GLOBULIN RATIO 0.5 (1.1-1.5); ALKALINE PHOSPHATASE 39 IU/L (46-116); ANION GAP 10 (8-16); ASPARTATE AMINO TRANSFERASE 32 U/L (10-37); BILIRUBIN,TOTAL 0.2 MG/DL (0.1-1.0); BLOOD UREA NITROGEN 7 MG/DL (7-18); BUN/CREATININE RATIO 5.8 (5.4-32.0); CALCIUM 9.3 MG/DL (8.5-10.1); CHLORIDE 105 MMOL/L (99-107); CREATININE 1.21 MG/DL (0.60-1.10); GLUCOSE 100 MG/DL (70-104); POTASSIUM 3.5 MMOL/L (3.5-5.1); SODIUM 140 MMOL/L (135-145); TOTAL CARBON DIOXIDE 24.6 MMOL/L (24-32); TOTAL PROTEIN 7.7 G/DL (6.4-8.2); eGFR 61 ML/MIN
[2018-02-16 07:13] VITALS: BP 145/93
[2018-02-16] MEDS: folic acid 1mg tablet PO SCH (08:16)
[2018-02-16] MEDS: docusate sod 100mg capsule PO SCH ×2 (08:16→20:36)
[2018-02-16] MEDS: thiamine 100mg tablet PO SCH (08:17)
[2018-02-16] MEDS: heparin, porcine 5000 units/ml vial SQ SCH ×2 (08:17→20:41)
[2018-02-16] MEDS: lactobacillus rhamnosus 10,000 MMU CELLS/CAPSULE PO SCH ×2 (08:17→20:35)
[2018-02-16] MEDS: lisinopril 10 MG tablet PO SCH (08:17)
[2018-02-16] MEDS: pantoprazole 40mg Tablet.DR PO SCH (08:17)
[2018-02-16] MEDS: HYDROchlorothiazide 12.5mg capsule PO SCH (08:17)
[2018-02-16] MEDS: metroNIDAZOLE 500mg tablet PO SCH ×2 (08:17→20:35)
[2018-02-16] MEDS: amLODIPine 5mg tablet PO SCH (08:17)
[2018-02-16] MEDS: HYDROcodone/acetaminophen 10/325mg tab PO PRN (08:23)
[2018-02-16] MEDS: CefTRIAXone 2gm/NS 100ml IVPB 100 ML IV SCH (10:46)
[2018-02-16] MEDS: fluconazole 10 MG/1 ML 35ml oral suspension PO SCH (11:48)
[2018-02-16 11:54] VITALS: BP 141/75
[2018-02-16] MEDS: HYDROcodone/acetaminophen 5mg/325mg tablet PO PRN ×2 (19:13→23:55)
[2018-02-16 20:00] VITALS: BP 145/85
[2018-02-16] MEDS: olanzapine 10mg tablet PO SCH (20:36)
[2018-02-16 23:31] VITALS: BP 106/75
[2018-02-17 06:23] LABS: BASOPHILS % (AUTO) 0.6 % (0-1); EOSINOPHILS # (AUTO) 0.5 X10'3 (0-0.9); EOSINOPHILS % (AUTO) 9.2 % (0-6); HEMATOCRIT 28.8 % (42.0-52.0); HEMOGLOBIN 9.8 g/dl (14.0-17.9); LYMPHOCYTES # (AUTO) 1.6 X10'3 (1.1-4.8); LYMPHOCYTES % (AUTO) 27.9 % (21-51); MEAN CORPUSCULAR HEMOGLOBIN 28.8 PG (27.0-31.0); MEAN CORPUSCULAR VOLUME 84.8 FL (78-98); MEAN PLATELET VOLUME 7.5 FL (7.4-10.4); MONOCYTES # (AUTO) 1.1 X10'3 (0-0.9); MONOCYTES % (AUTO) 19.3 % (2-12); NEUTROPHILS # (AUTO) 2.5 X10'3 (1.8-7.7); PLATELET COUNT 381 X10'3 (140-440); RED CELL DISTRIBUTION WIDTH 13.8 % (11.5-14.5); WHITE BLOOD COUNT 5.7 X10'3 (4.5-11.0)
[2018-02-17 06:54] LABS: ALANINE AMINOTRANSFERASE 15 U/L (12-78); ALBUMIN 2.7 G/DL (3.4-5.0); ALBUMIN/GLOBULIN RATIO 0.5 (1.1-1.5); ALKALINE PHOSPHATASE 41 IU/L (46-116); ANION GAP 10 (8-16); ASPARTATE AMINO TRANSFERASE 36 U/L (10-37); BILIRUBIN,TOTAL 0.2 MG/DL (0.1-1.0); BLOOD UREA NITROGEN 7 MG/DL (7-18); BUN/CREATININE RATIO 5.6 (5.4-32.0); CALCIUM 9.2 MG/DL (8.5-10.1); CHLORIDE 104 MMOL/L (99-107); CREATININE 1.24 MG/DL (0.60-1.10); GLUCOSE 106 MG/DL (70-104); POTASSIUM 3.6 MMOL/L (3.5-5.1); SODIUM 139 MMOL/L (135-145); TOTAL CARBON DIOXIDE 25.3 MMOL/L (24-32); TOTAL PROTEIN 7.9 G/DL (6.4-8.2); eGFR 59 ML/MIN
[2018-02-17] MEDS: thiamine 100mg tablet PO SCH (08:33)
[2018-02-17] MEDS: folic acid 1mg tablet PO SCH (08:34)
[2018-02-17] MEDS: HYDROchlorothiazide 12.5mg capsule PO SCH (08:34)
[2018-02-17] MEDS: lactobacillus rhamnosus 10,000 MMU CELLS/CAPSULE PO SCH ×2 (08:34→20:19)
[2018-02-17] MEDS: amLODIPine 5mg tablet PO SCH (08:34)
[2018-02-17] MEDS: pantoprazole 40mg Tablet.DR PO SCH (08:34)
[2018-02-17] MEDS: docusate sod 100mg capsule PO SCH ×2 (08:34→20:19)
[2018-02-17] MEDS: lisinopril 10 MG tablet PO SCH (08:34)
[2018-02-17] MEDS: metroNIDAZOLE 500mg tablet PO SCH ×2 (08:34→20:20)
[2018-02-17] MEDS: heparin, porcine 5000 units/ml vial SQ SCH ×2 (08:35→20:19)
[2018-02-17] MEDS: CefTRIAXone 2gm/D5W 50ml 50 ML IV SCH (08:35)
[2018-02-17] MEDS: HYDROcodone/acetaminophen 10/325mg tab PO PRN ×2 (08:55→15:36)
[2018-02-17] MEDS: fluconazole 100mg tablet PO SCH (09:29)
[2018-02-17 12:03] VITALS: BP 131/88
[2018-02-17] MEDS: VANCOMYCIN 750MG IV in NS 250 ML IV SCH (12:22)
[2018-02-17 19:00] VITALS: BP 148/86
[2018-02-17] MEDS: olanzapine 10mg tablet PO SCH (20:19)
[2018-02-17] MEDS: HYDROcodone/acetaminophen 5mg/325mg tablet PO PRN (20:20)
[2018-02-17] MEDS: normal saline 1000ml 1,000 ML IV SCH (21:29)
[2018-02-18] VITALS: BP 127/87
[2018-02-18] MEDS: VANCOMYCIN 750MG IV in NS 250 ML IV SCH ×3 (00:36→23:46)
[2018-02-18 05:16] LABS: BASOPHILS % (AUTO) 0.5 % (0-1); EOSINOPHILS # (AUTO) 0.6 X10'3 (0-0.9); EOSINOPHILS % (AUTO) 9.4 % (0-6); HEMATOCRIT 28.3 % (42.0-52.0); HEMOGLOBIN 9.7 g/dl (14.0-17.9); LYMPHOCYTES # (AUTO) 1.7 X10'3 (1.1-4.8); LYMPHOCYTES % (AUTO) 26.4 % (21-51); MEAN CORPUSCULAR HEMOGLOBIN 28.9 PG (27.0-31.0); MEAN CORPUSCULAR HGB CONC 34.4 % (33.0-36.5); MEAN CORPUSCULAR VOLUME 83.9 FL (78-98); MEAN PLATELET VOLUME 7.2 FL (7.4-10.4); MONOCYTES # (AUTO) 1.1 X10'3 (0-0.9); MONOCYTES % (AUTO) 16.3 % (2-12); NEUTROPHILS # (AUTO) 3.1 X10'3 (1.8-7.7); NEUTROPHILS % (AUTO) 47.4 % (42-75); PLATELET COUNT 389 X10'3 (140-440); RED BLOOD COUNT 3.37 X10'6 (4.70-6.10); RED CELL DISTRIBUTION WIDTH 13.7 % (11.5-14.5); WHITE BLOOD COUNT 6.5 X10'3 (4.5-11.0)
[2018-02-18 05:44] LABS: ALANINE AMINOTRANSFERASE 16 U/L (12-78); ALBUMIN 2.7 G/DL (3.4-5.0); ALBUMIN/GLOBULIN RATIO 0.5 (1.1-1.5); ALKALINE PHOSPHATASE 37 IU/L (46-116); ANION GAP 10 (8-16); ASPARTATE AMINO TRANSFERASE 32 U/L (10-37); BILIRUBIN,TOTAL 0.2 MG/DL (0.1-1.0); BLOOD UREA NITROGEN 9 MG/DL (7-18); BUN/CREATININE RATIO 7.3 (5.4-32.0); CALCIUM 9.1 MG/DL (8.5-10.1); CHLORIDE 102 MMOL/L (99-107); CREATININE 1.24 MG/DL (0.60-1.10); GLUCOSE 95 MG/DL (70-104); POTASSIUM 3.6 MMOL/L (3.5-5.1); SODIUM 137 MMOL/L (135-145); TOTAL CARBON DIOXIDE 24.8 MMOL/L (24-32); TOTAL PROTEIN 7.9 G/DL (6.4-8.2); eGFR 59 ML/MIN
[2018-02-18 07:03] VITALS: BP 143/88
[2018-02-18] MEDS: docusate sod 100mg capsule PO SCH ×2 (07:37→20:18)
[2018-02-18] MEDS: metroNIDAZOLE 500mg tablet PO SCH ×2 (07:37→20:19)
[2018-02-18] MEDS: pantoprazole 40mg Tablet.DR PO SCH (07:37)
[2018-02-18] MEDS: lactobacillus rhamnosus 10,000 MMU CELLS/CAPSULE PO SCH ×2 (07:37→20:17)
[2018-02-18] MEDS: folic acid 1mg tablet PO SCH (07:37)
[2018-02-18] MEDS: amLODIPine 5mg tablet PO SCH (07:37)
[2018-02-18] MEDS: thiamine 100mg tablet PO SCH (07:37)
[2018-02-18] MEDS: HYDROchlorothiazide 12.5mg capsule PO SCH (07:37)
[2018-02-18] MEDS: lisinopril 10 MG tablet PO SCH (07:37)
[2018-02-18] MEDS: HYDROcodone/acetaminophen 10/325mg tab PO PRN ×2 (07:38→20:19)
[2018-02-18] MEDS: heparin, porcine 5000 units/ml vial SQ SCH ×2 (07:38→20:17)
[2018-02-18] MEDS: CefTRIAXone 2gm/D5W 50ml 50 ML IV SCH (07:38)
[2018-02-18] MEDS: fluconazole 100mg tablet PO SCH (07:42)
[2018-02-18 11:21] VITALS: BP 119/81
[2018-02-18] MEDS: normal saline 1000ml 1,000 ML IV SCH ×2 (14:49→23:13)
[2018-02-18 19:00] VITALS: BP 148/90
[2018-02-18] MEDS: olanzapine 10mg tablet PO SCH (20:18)
[2018-02-19] VITALS: BP 119/78
[2018-02-19 07:00] VITALS: BP 133/98
[2018-02-19] MEDS: folic acid 1mg tablet PO SCH (07:45)
[2018-02-19] MEDS: amLODIPine 5mg tablet PO SCH (07:46)
[2018-02-19] MEDS: metroNIDAZOLE 500mg tablet PO SCH ×2 (07:46→20:15)
[2018-02-19] MEDS: pantoprazole 40mg Tablet.DR PO SCH (07:46)
[2018-02-19] MEDS: lactobacillus rhamnosus 10,000 MMU CELLS/CAPSULE PO SCH ×2 (07:46→20:15)
[2018-02-19] MEDS: docusate sod 100mg capsule PO SCH ×2 (07:46→20:15)
[2018-02-19] MEDS: HYDROchlorothiazide 12.5mg capsule PO SCH (07:46)
[2018-02-19] MEDS: thiamine 100mg tablet PO SCH (07:46)
[2018-02-19] MEDS: lisinopril 10 MG tablet PO SCH (07:46)
[2018-02-19] MEDS: CefTRIAXone 2gm/D5W 50ml 50 ML IV SCH (07:47)
[2018-02-19] MEDS: heparin, porcine 5000 units/ml vial SQ SCH ×2 (07:47→20:15)
[2018-02-19] MEDS: HYDROcodone/acetaminophen 5mg/325mg tablet PO PRN (07:58)
[2018-02-19] MEDS: fluconazole 100mg tablet PO SCH (08:02)
[2018-02-19 11:00] VITALS: BP 136/79
[2018-02-19] MEDS: VANCOMYCIN 750MG IV in NS 250 ML IV SCH (12:05)
[2018-02-19 19:00] VITALS: BP 147/88
[2018-02-19] MEDS: olanzapine 10mg tablet PO SCH (20:15)
[2018-02-19] MEDS: normal saline 1000ml 1,000 ML IV SCH (22:40)
[2018-02-20] VITALS: BP 148/91
[2018-02-20] MEDS: VANCOMYCIN 750MG IV in NS 250 ML IV SCH ×2 (00:12→13:04)
[2018-02-20] MEDS: temazepam 15mg capsule PO PRN ×2 (00:12→20:57)
[2018-02-20] MEDS: pantoprazole 40mg Tablet.DR PO SCH (07:30)
[2018-02-20 08:00] VITALS: BP 133/83
[2018-02-20] MEDS: metroNIDAZOLE 500mg tablet PO SCH ×2 (08:00→20:53)
[2018-02-20] MEDS: HYDROchlorothiazide 12.5mg capsule PO SCH (08:00)
[2018-02-20] MEDS: folic acid 1mg tablet PO SCH (08:00)
[2018-02-20] MEDS: lisinopril 10 MG tablet PO SCH (08:00)
[2018-02-20] MEDS: thiamine 100mg tablet PO SCH (08:00)
[2018-02-20] MEDS: amLODIPine 5mg tablet PO SCH (08:00)
[2018-02-20] MEDS: CefTRIAXone 2gm/D5W 50ml 50 ML IV SCH (08:00)
[2018-02-20] MEDS: lactobacillus rhamnosus 10,000 MMU CELLS/CAPSULE PO SCH ×2 (08:00→20:53)
[2018-02-20] MEDS: fluconazole 100mg tablet PO SCH (08:00)
[2018-02-20] MEDS: docusate sod 100mg capsule PO SCH ×2 (08:00→20:53)
[2018-02-20] MEDS: heparin, porcine 5000 units/ml vial SQ SCH ×2 (10:13→20:54)
[2018-02-20 11:00] VITALS: BP 126/77
[2018-02-20 19:00] VITALS: BP 125/76
[2018-02-20] MEDS: olanzapine 10mg tablet PO SCH (20:54)
[2018-02-21] VITALS: BP 142/85
[2018-02-21] MEDS: VANCOMYCIN 750MG IV in NS 250 ML IV SCH ×3 (00:14→23:42)
[2018-02-21] MEDS: normal saline 1000ml 1,000 ML IV SCH ×2 (02:41→22:27)
[2018-02-21 06:08] LABS: BASOPHILS # (AUTO) 0.1 X10'3 (0-0.2); BASOPHILS % (AUTO) 1.1 % (0-1); EOSINOPHILS # (AUTO) 0.3 X10'3 (0-0.9); EOSINOPHILS % (AUTO) 5.4 % (0-6); HEMOGLOBIN 10.1 g/dl (14.0-17.9); LYMPHOCYTES # (AUTO) 2.4 X10'3 (1.1-4.8); LYMPHOCYTES % (AUTO) 43.3 % (21-51); MEAN CORPUSCULAR HGB CONC 34.6 % (33.0-36.5); MEAN CORPUSCULAR VOLUME 83.8 FL (78-98); MEAN PLATELET VOLUME 7.3 FL (7.4-10.4); MONOCYTES # (AUTO) 0.5 X10'3 (0-0.9); MONOCYTES % (AUTO) 9.9 % (2-12); NEUTROPHILS # (AUTO) 2.2 X10'3 (1.8-7.7); NEUTROPHILS % (AUTO) 40.3 % (42-75); PLATELET COUNT 366 X10'3 (140-440); RED BLOOD COUNT 3.46 X10'6 (4.70-6.10); RED CELL DISTRIBUTION WIDTH 13.8 % (11.5-14.5); WHITE BLOOD COUNT 5.5 X10'3 (4.5-11.0)
[2018-02-21 06:17] LABS: ALANINE AMINOTRANSFERASE 15 U/L (12-78); ALBUMIN 2.8 G/DL (3.4-5.0); ALBUMIN/GLOBULIN RATIO 0.5 (1.1-1.5); ALKALINE PHOSPHATASE 51 IU/L (46-116); ANION GAP 10 (8-16); ASPARTATE AMINO TRANSFERASE 29 U/L (10-37); BILIRUBIN,TOTAL 0.2 MG/DL (0.1-1.0); BLOOD UREA NITROGEN 14 MG/DL (7-18); BUN/CREATININE RATIO 11.7 (5.4-32.0); CALCIUM 8.9 MG/DL (8.5-10.1); CHLORIDE 105 MMOL/L (99-107); GLUCOSE 109 MG/DL (70-104); POTASSIUM 3.9 MMOL/L (3.5-5.1); SODIUM 139 MMOL/L (135-145); TOTAL CARBON DIOXIDE 23.8 MMOL/L (24-32); eGFR 61 ML/MIN
[2018-02-21 07:35] VITALS: BP 135/85
[2018-02-21] MEDS: pantoprazole 40mg Tablet.DR PO SCH (07:48)
[2018-02-21] MEDS: amLODIPine 5mg tablet PO SCH (07:49)
[2018-02-21] MEDS: fluconazole 100mg tablet PO SCH (07:49)
[2018-02-21] MEDS: HYDROchlorothiazide 12.5mg capsule PO SCH (07:49)
[2018-02-21] MEDS: metroNIDAZOLE 500mg tablet PO SCH ×2 (07:49→21:26)
[2018-02-21] MEDS: folic acid 1mg tablet PO SCH (07:49)
[2018-02-21] MEDS: lisinopril 10 MG tablet PO SCH (07:49)
[2018-02-21] MEDS: docusate sod 100mg capsule PO SCH ×2 (07:49→21:26)
[2018-02-21] MEDS: lactobacillus rhamnosus 10,000 MMU CELLS/CAPSULE PO SCH ×2 (07:49→21:26)
[2018-02-21] MEDS: thiamine 100mg tablet PO SCH (07:49)
[2018-02-21] MEDS: CefTRIAXone 2gm/D5W 50ml 50 ML IV SCH (07:50)
[2018-02-21] MEDS: HYDROcodone/acetaminophen 10/325mg tab PO PRN ×2 (07:50→15:37)
[2018-02-21] MEDS: heparin, porcine 5000 units/ml vial SQ SCH ×2 (07:51→21:26)
[2018-02-21 13:30] VITALS: BP 127/80
[2018-02-21 18:50] VITALS: BP 147/89
[2018-02-21] MEDS: olanzapine 10mg tablet PO SCH (21:26)
[2018-02-21] MEDS: temazepam 15mg capsule PO PRN (23:42)
[2018-02-22] VITALS: BP 129/77
[2018-02-22 06:30] VITALS: BP 128/80
[2018-02-22] MEDS: CefTRIAXone 2gm/D5W 50ml 50 ML IV SCH (07:24)
[2018-02-22] MEDS: pantoprazole 40mg Tablet.DR PO SCH (07:24)
[2018-02-22] MEDS: folic acid 1mg tablet PO SCH (07:25)
[2018-02-22] MEDS: metroNIDAZOLE 500mg tablet PO SCH (07:25)
[2018-02-22] MEDS: fluconazole 100mg tablet PO SCH (07:25)
[2018-02-22] MEDS: docusate sod 100mg capsule PO SCH ×2 (07:25→20:47)
[2018-02-22] MEDS: lactobacillus rhamnosus 10,000 MMU CELLS/CAPSULE PO SCH ×2 (07:25→20:46)
[2018-02-22] MEDS: amLODIPine 5mg tablet PO SCH (07:26)
[2018-02-22] MEDS: HYDROchlorothiazide 12.5mg capsule PO SCH (07:26)
[2018-02-22] MEDS: lisinopril 10 MG tablet PO SCH (07:26)
[2018-02-22] MEDS: thiamine 100mg tablet PO SCH (07:26)
[2018-02-22] MEDS: heparin, porcine 5000 units/ml vial SQ SCH ×2 (07:27→20:47)
[2018-02-22] MEDS: HYDROcodone/acetaminophen 10/325mg tab PO PRN ×2 (07:36→17:06)
[2018-02-22 11:09] VITALS: BP 140/83
[2018-02-22] MEDS ORDERED: VANCOMYCIN LEVEL IV NR (11:30)
[2018-02-22 12:30] VITALS: BP 120/78
[2018-02-22] MEDS: VANCOMYCIN 750MG IV in NS 250 ML IV SCH (12:39)
[2018-02-22 20:00] VITALS: BP 131/92
[2018-02-22] MEDS: olanzapine 10mg tablet PO SCH (20:47)
[2018-02-22] MEDS: normal saline 1000ml 1,000 ML IV SCH (20:47)
[2018-02-22 23:30] VITALS: BP 145/75
[2018-02-23] MEDS: VANCOMYCIN 750MG IV in NS 250 ML IV SCH ×3 (00:13→23:30)
[2018-02-23 06:52] LABS: ALBUMIN 2.8 G/DL (3.4-5.0); ANION GAP 11 (8-16); BLOOD UREA NITROGEN 12 MG/DL (7-18); BUN/CREATININE RATIO 10.3 (5.4-32.0); CALCIUM 9.1 MG/DL (8.5-10.1); CHLORIDE 106 MMOL/L (99-107); CREATININE 1.16 MG/DL (0.60-1.10); GLUCOSE 90 MG/DL (70-104); SODIUM 141 MMOL/L (135-145); TOTAL CARBON DIOXIDE 24.3 MMOL/L (24-32); eGFR 64 ML/MIN
[2018-02-23 07:00] VITALS: BP 131/85
[2018-02-23] MEDS: CefTRIAXone 2gm/D5W 50ml 50 ML IV SCH (08:17)
[2018-02-23] MEDS: lisinopril 10 MG tablet PO SCH (08:23)
[2018-02-23] MEDS: lactobacillus rhamnosus 10,000 MMU CELLS/CAPSULE PO SCH ×2 (08:23→20:32)
[2018-02-23] MEDS: fluconazole 100mg tablet PO SCH (08:23)
[2018-02-23] MEDS: docusate sod 100mg capsule PO SCH ×2 (08:23→20:32)
[2018-02-23] MEDS: amLODIPine 5mg tablet PO SCH (08:24)
[2018-02-23] MEDS: thiamine 100mg tablet PO SCH (08:24)
[2018-02-23] MEDS: pantoprazole 40mg Tablet.DR PO SCH (08:26)
[2018-02-23] MEDS: HYDROcodone/acetaminophen 5mg/325mg tablet PO PRN ×2 (08:26→20:34)
[2018-02-23] MEDS: folic acid 1mg tablet PO SCH (08:26)
[2018-02-23] MEDS: HYDROchlorothiazide 12.5mg capsule PO SCH (08:27)
[2018-02-23] MEDS: heparin, porcine 5000 units/ml vial SQ SCH ×2 (08:31→20:33)
[2018-02-23 11:00] VITALS: BP 131/85
[2018-02-23] MEDS: normal saline 1000ml 1,000 ML IV SCH (14:49)
[2018-02-23 19:00] VITALS: BP 136/84
[2018-02-23] MEDS: olanzapine 10mg tablet PO SCH (20:33)
[2018-02-24] MEDS: normal saline 1000ml 1,000 ML IV SCH ×2 (00:45→23:52)
[2018-02-24] MEDS: HYDROcodone/acetaminophen 5mg/325mg tablet PO PRN ×2 (05:48→21:10)
[2018-02-24 06:11] LABS: ALBUMIN 2.7 G/DL (3.4-5.0); ANION GAP 11 (8-16); BLOOD UREA NITROGEN 11 MG/DL (7-18); BUN/CREATININE RATIO 9.3 (5.4-32.0); C-REACTIVE PROTEIN 0.34 MG/DL (0.0-0.5); CALCIUM 9.4 MG/DL (8.5-10.1); CHLORIDE 106 MMOL/L (99-107); CREATININE 1.18 MG/DL (0.60-1.10); GLUCOSE 102 MG/DL (70-104); SODIUM 141 MMOL/L (135-145); TOTAL CARBON DIOXIDE 24.4 MMOL/L (24-32); eGFR 62 ML/MIN
[2018-02-24 08:05] VITALS: BP 137/90
[2018-02-24] MEDS: lisinopril 10 MG tablet PO SCH (08:29)
[2018-02-24] MEDS: pantoprazole 40mg Tablet.DR PO SCH (08:29)
[2018-02-24] MEDS: heparin, porcine 5000 units/ml vial SQ SCH ×2 (08:30→21:14)
[2018-02-24] MEDS: CefTRIAXone 2gm/D5W 50ml 50 ML IV SCH (08:30)
[2018-02-24] MEDS: lactobacillus rhamnosus 10,000 MMU CELLS/CAPSULE PO SCH ×2 (08:30→21:11)
[2018-02-24] MEDS: HYDROchlorothiazide 12.5mg capsule PO SCH (08:30)
[2018-02-24] MEDS: folic acid 1mg tablet PO SCH (08:30)
[2018-02-24] MEDS: amLODIPine 5mg tablet PO SCH (08:30)
[2018-02-24] MEDS: thiamine 100mg tablet PO SCH (08:30)
[2018-02-24] MEDS: docusate sod 100mg capsule PO SCH ×2 (08:30→21:10)
[2018-02-24] MEDS: fluconazole 100mg tablet PO SCH (08:34)
[2018-02-24 11:04] VITALS: BP 126/84
[2018-02-24] MEDS: VANCOMYCIN 750MG IV in NS 250 ML IV SCH ×2 (12:22→23:52)
[2018-02-24] MEDS: HYDROcodone/acetaminophen 10/325mg tab PO PRN (17:04)
[2018-02-24 19:00] VITALS: BP 124/80
[2018-02-24] MEDS: olanzapine 10mg tablet PO SCH (21:12)
[2018-02-24] MEDS: temazepam 15mg capsule PO PRN (23:56)
[2018-02-25] VITALS: BP 126/76
[2018-02-25 07:22] VITALS: BP 129/79
[2018-02-25] MEDS: docusate sod 100mg capsule PO SCH ×2 (08:00→20:11)
[2018-02-25] MEDS: pantoprazole 40mg Tablet.DR PO SCH (09:32)
[2018-02-25] MEDS: CefTRIAXone 2gm/D5W 50ml 50 ML IV SCH (09:33)
[2018-02-25] MEDS: fluconazole 100mg tablet PO SCH (09:34)
[2018-02-25] MEDS: lactobacillus rhamnosus 10,000 MMU CELLS/CAPSULE PO SCH ×2 (09:34→20:11)
[2018-02-25] MEDS: folic acid 1mg tablet PO SCH (09:34)
[2018-02-25] MEDS: thiamine 100mg tablet PO SCH (09:35)
[2018-02-25] MEDS: HYDROchlorothiazide 12.5mg capsule PO SCH (09:35)
[2018-02-25] MEDS: amLODIPine 5mg tablet PO SCH (09:35)
[2018-02-25] MEDS: lisinopril 10 MG tablet PO SCH (09:35)
[2018-02-25] MEDS: heparin, porcine 5000 units/ml vial SQ SCH ×2 (09:36→20:11)
[2018-02-25] MEDS: HYDROcodone/acetaminophen 5mg/325mg tablet PO PRN ×2 (10:57→19:06)
[2018-02-25 11:30] VITALS: BP 130/74
[2018-02-25] MEDS ORDERED: VANCOMYCIN LEVEL IV NR (11:30)
[2018-02-25] MEDS: VANCOMYCIN 750MG IV in NS 250 ML IV SCH ×2 (12:43→23:45)
[2018-02-25 19:00] VITALS: BP 150/91
[2018-02-25] MEDS: olanzapine 10mg tablet PO SCH (20:45)
[2018-02-26] VITALS: BP 103/60
[2018-02-26] MEDS: normal saline 1000ml 1,000 ML IV SCH ×2 (03:22→22:49)
[2018-02-26 05:51] LABS: ALBUMIN 2.7 G/DL (3.4-5.0); ANION GAP 11 (8-16); BLOOD UREA NITROGEN 11 MG/DL (7-18); BUN/CREATININE RATIO 10.3 (5.4-32.0); CALCIUM 9.2 MG/DL (8.5-10.1); CHLORIDE 105 MMOL/L (99-107); CREATININE 1.07 MG/DL (0.60-1.10); GLUCOSE 93 MG/DL (70-104); SODIUM 140 MMOL/L (135-145); TOTAL CARBON DIOXIDE 23.8 MMOL/L (24-32); eGFR 70 ML/MIN
[2018-02-26 06:56] VITALS: BP 123/75
[2018-02-26] MEDS: docusate sod 100mg capsule PO SCH ×2 (08:00→20:46)
[2018-02-26] MEDS: CefTRIAXone 2gm/D5W 50ml 50 ML IV SCH (09:03)
[2018-02-26] MEDS: pantoprazole 40mg Tablet.DR PO SCH (09:03)
[2018-02-26] MEDS: lactobacillus rhamnosus 10,000 MMU CELLS/CAPSULE PO SCH ×2 (09:04→20:46)
[2018-02-26] MEDS: folic acid 1mg tablet PO SCH (09:04)
[2018-02-26] MEDS: fluconazole 100mg tablet PO SCH (09:04)
[2018-02-26] MEDS: HYDROchlorothiazide 12.5mg capsule PO SCH (09:04)
[2018-02-26] MEDS: thiamine 100mg tablet PO SCH (09:05)
[2018-02-26] MEDS: amLODIPine 5mg tablet PO SCH (09:05)
[2018-02-26] MEDS: lisinopril 10 MG tablet PO SCH (09:06)
[2018-02-26] MEDS: heparin, porcine 5000 units/ml vial SQ SCH ×2 (09:06→20:47)
[2018-02-26 11:30] VITALS: BP 138/81
[2018-02-26] MEDS: VANCOMYCIN 750MG IV in NS 250 ML IV SCH ×2 (12:33→23:51)
[2018-02-26 18:40] VITALS: BP 131/84
[2018-02-26] MEDS: olanzapine 10mg tablet PO SCH (20:46)
[2018-02-27] VITALS: BP 129/68
[2018-02-27 06:07] LABS: ALBUMIN 2.8 G/DL (3.4-5.0); ANION GAP 11 (8-16); BLOOD UREA NITROGEN 11 MG/DL (7-18); CALCIUM 9.4 MG/DL (8.5-10.1); CHLORIDE 106 MMOL/L (99-107); CREATININE 1.22 MG/DL (0.60-1.10); GLUCOSE 106 MG/DL (70-104); POTASSIUM 3.9 MMOL/L (3.5-5.1); SODIUM 141 MMOL/L (135-145); TOTAL CARBON DIOXIDE 24.2 MMOL/L (24-32); eGFR 60 ML/MIN
[2018-02-27 07:00] VITALS: BP 103/74
[2018-02-27] MEDS: HYDROcodone/acetaminophen 10/325mg tab PO PRN (08:07)
[2018-02-27] MEDS: CefTRIAXone 2gm/D5W 50ml 50 ML IV SCH (08:07)
[2018-02-27] MEDS: amLODIPine 5mg tablet PO SCH (08:08)
[2018-02-27] MEDS: lactobacillus rhamnosus 10,000 MMU CELLS/CAPSULE PO SCH ×2 (08:08→20:16)
[2018-02-27] MEDS: HYDROchlorothiazide 12.5mg capsule PO SCH (08:08)
[2018-02-27] MEDS: docusate sod 100mg capsule PO SCH ×2 (08:08→20:16)
[2018-02-27] MEDS: folic acid 1mg tablet PO SCH (08:08)
[2018-02-27] MEDS: thiamine 100mg tablet PO SCH (08:08)
[2018-02-27] MEDS: pantoprazole 40mg Tablet.DR PO SCH (08:08)
[2018-02-27] MEDS: lisinopril 10 MG tablet PO SCH (08:08)
[2018-02-27] MEDS: heparin, porcine 5000 units/ml vial SQ SCH ×2 (08:09→20:16)
[2018-02-27] MEDS: fluconazole 100mg tablet PO SCH (08:14)
[2018-02-27 11:00] VITALS: BP 118/80
[2018-02-27] MEDS: VANCOMYCIN 750MG IV in NS 250 ML IV SCH ×2 (12:41→23:50)
[2018-02-27 18:40] VITALS: BP 129/81
[2018-02-27] MEDS: olanzapine 10mg tablet PO SCH (20:16)
[2018-02-28] VITALS: BP 133/72
[2018-02-28 07:00] VITALS: BP 113/66
[2018-02-28] MEDS: HYDROcodone/acetaminophen 10/325mg tab PO PRN ×3 (07:28→22:55)
[2018-02-28] MEDS: pantoprazole 40mg Tablet.DR PO SCH (07:29)
[2018-02-28] MEDS: lisinopril 10 MG tablet PO SCH (07:29)
[2018-02-28] MEDS: heparin, porcine 5000 units/ml vial SQ SCH ×2 (07:29→20:48)
[2018-02-28] MEDS: lactobacillus rhamnosus 10,000 MMU CELLS/CAPSULE PO SCH ×2 (07:30→20:48)
[2018-02-28] MEDS: HYDROchlorothiazide 12.5mg capsule PO SCH (07:30)
[2018-02-28] MEDS: thiamine 100mg tablet PO SCH (07:30)
[2018-02-28] MEDS: amLODIPine 5mg tablet PO SCH (07:30)
[2018-02-28] MEDS: fluconazole 100mg tablet PO SCH (07:30)
[2018-02-28] MEDS: docusate sod 100mg capsule PO SCH ×2 (07:30→20:48)
[2018-02-28] MEDS: CefTRIAXone 2gm/D5W 50ml 50 ML IV SCH (07:31)
[2018-02-28] MEDS: folic acid 1mg tablet PO SCH (07:37)
[2018-02-28] MEDS: metroNIDAZOLE 500mg tablet PO SCH ×2 (07:51→20:48)
[2018-02-28 11:55] VITALS: BP 112/75
[2018-02-28] MEDS: VANCOMYCIN 750MG IV in NS 250 ML IV SCH ×2 (12:21→23:53)
[2018-02-28 12:23] LABS: BASOPHILS % (AUTO) 0.7 % (0-1); EOSINOPHILS # (AUTO) 0.3 X10'3 (0-0.9); EOSINOPHILS % (AUTO) 4.9 % (0-6); HEMATOCRIT 27.4 % (42.0-52.0); HEMOGLOBIN 9.5 g/dl (14.0-17.9); LYMPHOCYTES # (AUTO) 1.9 X10'3 (1.1-4.8); LYMPHOCYTES % (AUTO) 31.4 % (21-51); MEAN CORPUSCULAR HEMOGLOBIN 28.3 PG (27.0-31.0); MEAN CORPUSCULAR HGB CONC 34.7 % (33.0-36.5); MEAN CORPUSCULAR VOLUME 81.4 FL (78-98); MEAN PLATELET VOLUME 7.2 FL (7.4-10.4); MONOCYTES # (AUTO) 0.6 X10'3 (0-0.9); MONOCYTES % (AUTO) 9.5 % (2-12); NEUTROPHILS # (AUTO) 3.2 X10'3 (1.8-7.7); NEUTROPHILS % (AUTO) 53.5 % (42-75); PLATELET COUNT 427 X10'3 (140-440); RED BLOOD COUNT 3.37 X10'6 (4.70-6.10); RED CELL DISTRIBUTION WIDTH 13.7 % (11.5-14.5)
[2018-02-28 18:40] VITALS: BP 129/87
[2018-02-28] MEDS: olanzapine 10mg tablet PO SCH (20:48)
[2018-02-28] MEDS: temazepam 15mg capsule PO PRN (22:54)
[2018-03-01 07:18] VITALS: BP 125/68
[2018-03-01] MEDS: pantoprazole 40mg Tablet.DR PO SCH (07:55)
[2018-03-01] MEDS: docusate sod 100mg capsule PO SCH ×2 (07:56→20:14)
[2018-03-01] MEDS: CefTRIAXone 2gm/D5W 50ml 50 ML IV SCH (07:56)
[2018-03-01] MEDS: metroNIDAZOLE 500mg tablet PO SCH ×2 (07:57→20:14)
[2018-03-01] MEDS: HYDROchlorothiazide 12.5mg capsule PO SCH (07:57)
[2018-03-01] MEDS: folic acid 1mg tablet PO SCH (07:57)
[2018-03-01] MEDS: fluconazole 100mg tablet PO SCH (07:57)
[2018-03-01] MEDS: lactobacillus rhamnosus 10,000 MMU CELLS/CAPSULE PO SCH ×2 (07:57→20:14)
[2018-03-01] MEDS: thiamine 100mg tablet PO SCH (07:58)
[2018-03-01] MEDS: lisinopril 10 MG tablet PO SCH (07:58)
[2018-03-01] MEDS: amLODIPine 5mg tablet PO SCH (07:58)
[2018-03-01] MEDS: heparin, porcine 5000 units/ml vial SQ SCH ×2 (07:59→20:15)
[2018-03-01] MEDS: HYDROcodone/acetaminophen 10/325mg tab PO PRN (08:55)
[2018-03-01] MEDS: VANCOMYCIN 750MG IV in NS 250 ML IV SCH (11:42)
[2018-03-01 11:53] VITALS: BP 112/72
[2018-03-01] MEDS: olanzapine 10mg tablet PO SCH (20:14)
[2018-03-02] MEDS: VANCOMYCIN 750MG IV in NS 250 ML IV SCH ×2 (01:19→12:52)
[2018-03-02 06:23] LABS: ALBUMIN 2.8 G/DL (3.4-5.0); ANION GAP 9 (8-16); BLOOD UREA NITROGEN 13 MG/DL (7-18); BUN/CREATININE RATIO 9.2 (5.4-32.0); CALCIUM 9.4 MG/DL (8.5-10.1); CHLORIDE 104 MMOL/L (99-107); CREATININE 1.41 MG/DL (0.60-1.10); GLUCOSE 102 MG/DL (70-104); POTASSIUM 4.2 MMOL/L (3.5-5.1); SODIUM 139 MMOL/L (135-145); TOTAL CARBON DIOXIDE 25.9 MMOL/L (24-32); eGFR 51 ML/MIN
[2018-03-02 07:00] VITALS: BP 134/81
[2018-03-02] MEDS: pantoprazole 40mg Tablet.DR PO SCH (09:46)
[2018-03-02] MEDS: docusate sod 100mg capsule PO SCH ×2 (09:46→19:22)
[2018-03-02] MEDS: CefTRIAXone 2gm/D5W 50ml 50 ML IV SCH (09:46)
[2018-03-02] MEDS: lactobacillus rhamnosus 10,000 MMU CELLS/CAPSULE PO SCH ×2 (09:47→19:22)
[2018-03-02] MEDS: fluconazole 100mg tablet PO SCH (09:47)
[2018-03-02] MEDS: metroNIDAZOLE 500mg tablet PO SCH ×2 (09:48→19:22)
[2018-03-02] MEDS: folic acid 1mg tablet PO SCH (09:48)
[2018-03-02] MEDS: HYDROchlorothiazide 12.5mg capsule PO SCH (09:49)
[2018-03-02] MEDS: amLODIPine 5mg tablet PO SCH (09:49)
[2018-03-02] MEDS: thiamine 100mg tablet PO SCH (09:49)
[2018-03-02] MEDS: lisinopril 10 MG tablet PO SCH (09:50)
[2018-03-02] MEDS: heparin, porcine 5000 units/ml vial SQ SCH ×2 (09:53→19:22)
[2018-03-02] MEDS: HYDROcodone/acetaminophen 10/325mg tab PO PRN (09:57)
[2018-03-02 11:00] VITALS: BP 119/72
[2018-03-02 18:00] VITALS: BP 118/75
[2018-03-02] MEDS: olanzapine 10mg tablet PO SCH (20:38)
[2018-03-02] MEDS ORDERED: VANCOMYCIN LEVEL IV ONE (23:30)
[2018-03-03] VITALS: BP 111/69
[2018-03-03 05:53] LABS: ALBUMIN 2.8 G/DL (3.4-5.0); ANION GAP 11 (8-16); BLOOD UREA NITROGEN 14 MG/DL (7-18); BUN/CREATININE RATIO 10.5 (5.4-32.0); CALCIUM 9.6 MG/DL (8.5-10.1); CHLORIDE 104 MMOL/L (99-107); CREATININE 1.33 MG/DL (0.60-1.10); GLUCOSE 100 MG/DL (70-104); POTASSIUM 4.5 MMOL/L (3.5-5.1); SODIUM 140 MMOL/L (135-145); TOTAL CARBON DIOXIDE 25.1 MMOL/L (24-32); eGFR 54 ML/MIN
[2018-03-03 07:00] VITALS: BP 113/71
[2018-03-03] MEDS: CefTRIAXone 2gm/D5W 50ml 50 ML IV SCH (07:58)
[2018-03-03] MEDS: heparin, porcine 5000 units/ml vial SQ SCH ×2 (07:59→19:27)
[2018-03-03] MEDS: docusate sod 100mg capsule PO SCH ×2 (08:04→19:26)
[2018-03-03] MEDS: HYDROchlorothiazide 12.5mg capsule PO SCH (08:05)
[2018-03-03] MEDS: folic acid 1mg tablet PO SCH (08:05)
[2018-03-03] MEDS: amLODIPine 5mg tablet PO SCH (08:05)
[2018-03-03] MEDS: pantoprazole 40mg Tablet.DR PO SCH (08:05)
[2018-03-03] MEDS: metroNIDAZOLE 500mg tablet PO SCH ×2 (08:05→19:26)
[2018-03-03] MEDS: fluconazole 100mg tablet PO SCH (08:06)
[2018-03-03] MEDS: thiamine 100mg tablet PO SCH (08:06)
[2018-03-03] MEDS: lactobacillus rhamnosus 10,000 MMU CELLS/CAPSULE PO SCH ×2 (08:06→19:26)
[2018-03-03] MEDS: lisinopril 10 MG tablet PO SCH (08:06)
[2018-03-03 11:14] VITALS: BP 106/76
[2018-03-03] MEDS: VANCOMYCIN 750MG IV in NS 250 ML IV SCH ×3 (14:00)
[2018-03-03 18:00] VITALS: BP 124/77
[2018-03-03] MEDS: HYDROcodone/acetaminophen 5mg/325mg tablet PO PRN (19:26)
[2018-03-03] MEDS: olanzapine 10mg tablet PO SCH (20:11)
[2018-03-04] VITALS: BP 125/69
[2018-03-04] MEDS: VANCOMYCIN 750MG IV in NS 250 ML IV SCH ×3 (00:14→23:33)
[2018-03-04 07:00] VITALS: BP 113/77
[2018-03-04] MEDS: thiamine 100mg tablet PO SCH (08:14)
[2018-03-04] MEDS: lisinopril 10 MG tablet PO SCH (08:14)
[2018-03-04] MEDS: docusate sod 100mg capsule PO SCH ×2 (08:14→19:12)
[2018-03-04] MEDS: folic acid 1mg tablet PO SCH (08:14)
[2018-03-04] MEDS: metroNIDAZOLE 500mg tablet PO SCH ×2 (08:14→19:12)
[2018-03-04] MEDS: pantoprazole 40mg Tablet.DR PO SCH (08:15)
[2018-03-04] MEDS: amLODIPine 5mg tablet PO SCH (08:15)
[2018-03-04] MEDS: HYDROchlorothiazide 12.5mg capsule PO SCH (08:15)
[2018-03-04] MEDS: lactobacillus rhamnosus 10,000 MMU CELLS/CAPSULE PO SCH ×2 (08:15→19:12)
[2018-03-04] MEDS: fluconazole 100mg tablet PO SCH (08:16)
[2018-03-04] MEDS: heparin, porcine 5000 units/ml vial SQ SCH ×2 (08:17→19:13)
[2018-03-04] MEDS: CefTRIAXone 2gm/D5W 50ml 50 ML IV SCH (08:18)
[2018-03-04 11:00] VITALS: BP 119/69
[2018-03-04] MEDS: HYDROcodone/acetaminophen 10/325mg tab PO PRN ×2 (11:43→19:12)
[2018-03-04 19:00] VITALS: BP 114/63
[2018-03-04] MEDS: olanzapine 10mg tablet PO SCH (20:53)
[2018-03-05] VITALS: BP 123/78
[2018-03-05] MEDS: CefTRIAXone 2gm/D5W 50ml 50 ML IV SCH (08:44)
[2018-03-05] MEDS: metroNIDAZOLE 500mg tablet PO SCH ×2 (08:44→20:19)
[2018-03-05] MEDS: lactobacillus rhamnosus 10,000 MMU CELLS/CAPSULE PO SCH ×2 (08:44→20:19)
[2018-03-05] MEDS: amLODIPine 5mg tablet PO SCH (08:45)
[2018-03-05] MEDS: HYDROchlorothiazide 12.5mg capsule PO SCH (08:45)
[2018-03-05] MEDS: lisinopril 10 MG tablet PO SCH (08:45)
[2018-03-05] MEDS: folic acid 1mg tablet PO SCH (08:45)
[2018-03-05] MEDS: docusate sod 100mg capsule PO SCH ×2 (08:45→20:19)
[2018-03-05] MEDS: thiamine 100mg tablet PO SCH (08:45)
[2018-03-05] MEDS: heparin, porcine 5000 units/ml vial SQ SCH ×2 (08:46→20:20)
[2018-03-05] MEDS: pantoprazole 40mg Tablet.DR PO SCH (08:58)
[2018-03-05] MEDS: HYDROcodone/acetaminophen 10/325mg tab PO PRN ×2 (09:17→20:33)
[2018-03-05 10:21] VITALS: BP 112/72
[2018-03-05 12:35] VITALS: BP 104/70
[2018-03-05] MEDS: HYDROcodone/acetaminophen 5mg/325mg tablet PO PRN (15:06)
[2018-03-05] MEDS: VANCOMYCIN 750MG IV in NS 250 ML IV SCH (15:06)
[2018-03-05 17:23] LABS: BASOPHILS % (AUTO) 0.7 % (0-1); EOSINOPHILS # (AUTO) 0.4 X10'3 (0-0.9); HEMATOCRIT 27.6 % (42.0-52.0); HEMOGLOBIN 9.3 g/dl (14.0-17.9); MEAN CORPUSCULAR HGB CONC 33.8 % (33.0-36.5); MEAN CORPUSCULAR VOLUME 82.8 FL (78-98); MONOCYTES # (AUTO) 0.8 X10'3 (0-0.9); MONOCYTES % (AUTO) 12.9 % (2-12); NEUTROPHILS # (AUTO) 2.9 X10'3 (1.8-7.7); NEUTROPHILS % (AUTO) 47.4 % (42-75); PLATELET COUNT 358 X10'3 (140-440); RED BLOOD COUNT 3.34 X10'6 (4.70-6.10); WHITE BLOOD COUNT 6.1 X10'3 (4.5-11.0)
[2018-03-05 19:00] VITALS: BP 114/70
[2018-03-05] MEDS: olanzapine 10mg tablet PO SCH (20:20)
[2018-03-06] VITALS: BP 104/59
[2018-03-06] MEDS: VANCOMYCIN 750MG IV in NS 250 ML IV SCH ×3 (00:58→23:45)
[2018-03-06 07:00] VITALS: BP 100/66
[2018-03-06] MEDS: lisinopril 10 MG tablet PO SCH (07:49)
[2018-03-06] MEDS: HYDROchlorothiazide 12.5mg capsule PO SCH (07:49)
[2018-03-06] MEDS: amLODIPine 5mg tablet PO SCH (07:49)
[2018-03-06] MEDS: CefTRIAXone 2gm/D5W 50ml 50 ML IV SCH (08:14)
[2018-03-06] MEDS: pantoprazole 40mg Tablet.DR PO SCH (08:15)
[2018-03-06] MEDS: folic acid 1mg tablet PO SCH (08:15)
[2018-03-06] MEDS: docusate sod 100mg capsule PO SCH ×2 (08:15→20:07)
[2018-03-06] MEDS: metroNIDAZOLE 500mg tablet PO SCH ×2 (08:15→20:06)
[2018-03-06] MEDS: thiamine 100mg tablet PO SCH (08:15)
[2018-03-06] MEDS: lactobacillus rhamnosus 10,000 MMU CELLS/CAPSULE PO SCH ×2 (08:15→20:07)
[2018-03-06] MEDS: heparin, porcine 5000 units/ml vial SQ SCH ×2 (08:16→20:00)
[2018-03-06] MEDS: HYDROcodone/acetaminophen 10/325mg tab PO PRN ×2 (11:41→20:06)
[2018-03-06 12:25] VITALS: BP 103/63
[2018-03-06 19:00] VITALS: BP 125/77
[2018-03-06] MEDS: olanzapine 10mg tablet PO SCH (20:07)
[2018-03-07] VITALS: BP 115/70
[2018-03-07 07:00] VITALS: BP 131/78
[2018-03-07] MEDS: heparin, porcine 5000 units/ml vial SQ SCH (08:16)
[2018-03-07] MEDS: pantoprazole 40mg Tablet.DR PO SCH (08:16)
[2018-03-07] MEDS: thiamine 100mg tablet PO SCH (08:16)
[2018-03-07] MEDS: amLODIPine 5mg tablet PO SCH (08:16)
[2018-03-07] MEDS: HYDROchlorothiazide 12.5mg capsule PO SCH (08:16)
[2018-03-07] MEDS: folic acid 1mg tablet PO SCH (08:16)
[2018-03-07] MEDS: lisinopril 10 MG tablet PO SCH (08:16)
[2018-03-07] MEDS: lactobacillus rhamnosus 10,000 MMU CELLS/CAPSULE PO SCH (08:16)
[2018-03-07] MEDS: docusate sod 100mg capsule PO SCH (08:16)
[2018-03-07] MEDS: HYDROcodone/acetaminophen 10/325mg tab PO PRN ×2 (08:25→15:43)
[2018-03-07 12:43] VITALS: BP 116/75
[2018-03-07] MEDS ORDERED: OLAN10TA3 PO (14:22)
[2018-03-07] MEDS ORDERED: AMLO10TA4 PO (14:22)
[2018-03-07] MEDS ORDERED: LISI10TA4 PO (14:22)
== END 2018-03-07 16:06 | disposition home or self-care (01) | DRG 383 ==
LOC: ER 16:17 → ED HOLD 22:06 → MED 3N 01-24 01:10
PROVIDERS: ADMIT Family Medicine; ATTEND Family Medicine
PROC: BD11YZZ Fluoroscopy of Esophagus using Other Contrast (ICD-10-PCS; 2018-02-12)
PROC: 0D598ZZ Destruction of Duodenum, Via Natural or Artificial Opening Endoscopic (ICD-10-PCS; principal; 2018-02-13)
DX: L03.115 Cellulitis of right lower limb (principal); I96 Gangrene, not elsewhere classified; N17.9 Acute kidney failure, unspecified; B37.81 Candidal esophagitis; K22.10 Ulcer of esophagus without bleeding; M86.671 Other chronic osteomyelitis, right ankle and foot; K22.2 Esophageal obstruction; F19.10 Other psychoactive substance abuse, uncomplicated; F20.9 Schizophrenia, unspecified; E87.6 Hypokalemia; D64.9 Anemia, unspecified; L89.892 Pressure ulcer of other site, stage 2; I12.9 Hypertensive chronic kidney disease with stage 1 through stage 4 chronic kidney disease, or unspecified chronic kidney disease; N18.9 Chronic kidney disease, unspecified; R93.3 Abnormal findings on diagnostic imaging of other parts of digestive tract; K31.819 Angiodysplasia of stomach and duodenum without bleeding; F10.229 Alcohol dependence with intoxication, unspecified; K44.9 Diaphragmatic hernia without obstruction or gangrene; B85.2 Pediculosis, unspecified; B19.20 Unspecified viral hepatitis C without hepatic coma; G47.30 Sleep apnea, unspecified; K21.0 Gastro-esophageal reflux disease with esophagitis; Z59.0 Homelessness; Z89.512 Acquired absence of left leg below knee; Z95.1 Presence of aortocoronary bypass graft; Z99.3 Dependence on wheelchair
CPT/HCPCS: 36415; 43239; 71045; 73610; 73630; 73720; 74220; 80048; 80053; 80202; 80305; 80320; 81001; 82607; 82746; 83540; 83550; 83605; 83735; 83880; 84100; 84132; 84145; 85025; 85610; 85651; 85730; 86140; 87040; 87070; 87077; 87088; 93005; 93926; 96365; 97161; 97530; 99285; A4620; A4649; A6196; A6212; A6213; A6258; A6402; A6446; A6449; A9579; G0500; J0696; J1644; J2060; J2250; J2270; J2405; J2543; J3010; J3370; J3411; J3475; J3490; J7030; Q0163

== ENCOUNTER 2018-08-07 19:17 | Emergency (ER) | payer MEDICAID ==
[~2018-08-07] VITALS: Ht 182.9 cm; Wt 84.0 kg
[~2018-08-07 19:17] MED LIST: AMLO10TA4 PO; LISI10TA4 PO; OLAN10TA3 PO
[2018-08-07] MEDS ORDERED: HYDROcodone/acetaminophen 10/325mg tab PO ONE (20:30)
[2018-08-07 21:17] VITALS: BP 150/101
[2018-08-07] MEDS ORDERED: HYDR-565 PO (21:32)
== END 2018-08-07 22:07 | disposition home or self-care (01) ==
LOC: ER 19:17
DX: S52.692A Other fracture of lower end of left ulna, initial encounter for closed fracture (principal); S00.81XA Abrasion of other part of head, initial encounter; S09.90XA Unspecified injury of head, initial encounter; Z59.0 Homelessness; Z56.0 Unemployment, unspecified; Z98.890 Other specified postprocedural states; Z95.1 Presence of aortocoronary bypass graft; Z79.899 Other long term (current) drug therapy; Y04.0XXA Assault by unarmed brawl or fight, initial encounter; Y93.89 Activity, other specified; Y92.89 Other specified places as the place of occurrence of the external cause; Y99.9 Unspecified external cause status
CPT/HCPCS: 29125; 70450; 73090; 73130; 99284

== ENCOUNTER 2018-08-20 15:21 | Emergency (ER) | payer MEDICAID ==
[~2018-08-20] VITALS: Ht 182.9 cm; Wt 79.5 kg
[~2018-08-20 15:21] MED LIST changes: +HYDR-565 PO
[2018-08-20 15:40] VITALS: BP 151/74
== END 2018-08-20 17:43 | disposition home or self-care (01) ==
LOC: ER 15:22
DX: S52.692D Other fracture of lower end of left ulna, subsequent encounter for closed fracture with routine healing (principal); Z79.899 Other long term (current) drug therapy; Z98.890 Other specified postprocedural states; Z60.2 Problems related to living alone; Z59.0 Homelessness; Z56.0 Unemployment, unspecified; Y04.0XXD Assault by unarmed brawl or fight, subsequent encounter
CPT/HCPCS: 29125; 99284

== ENCOUNTER 2018-09-07 15:04 | Emergency (ER) | payer MEDICAID ==
[~2018-09-07] VITALS: Ht 182.9 cm; Wt 79.5 kg
[~2018-09-07 15:04] MED LIST changes: +HYDR-4353 PO; -HYDR-565 PO
[2018-09-07 15:13] VITALS: BP 108/69
== END 2018-09-07 15:36 | disposition home or self-care (01) ==
LOC: ER 15:04
DX: S52.692D Other fracture of lower end of left ulna, subsequent encounter for closed fracture with routine healing (principal); Z79.899 Other long term (current) drug therapy; Z60.2 Problems related to living alone; Z56.0 Unemployment, unspecified; Z59.0 Homelessness; Y04.0XXD Assault by unarmed brawl or fight, subsequent encounter
CPT/HCPCS: 99281

== ENCOUNTER 2018-11-12 17:35 | Emergency (ER) | payer MEDICAID ==
[~2018-11-12] VITALS: Ht 182.9 cm; Wt 79.5 kg
[~2018-11-12 17:35] MED LIST changes: -AMLO10TA4 PO; +AMLO5TAB4 PO; +BACDS PO; +COL100C PO; +FAMO20TA8 PO; +FER325T PO; -HYDR-4353 PO; +LACT1CAP26 PO; -LISI10TA4 PO; +MULT-1179 PO; -OLAN10TA3 PO
[2018-11-12] MEDS ORDERED: sulfamethoxazole/trimethoprim DS (800/160mg) tablet PO ONE (22:10)
[2018-11-12] MEDS ORDERED: ketorolac tromethamine 15mg/ml inj. IM ONE (22:10)
[2018-11-12] MEDS ORDERED: mupirocin 2% nasal ointment 1gm UD NS ONE (22:10)
[2018-11-12] MEDS ORDERED: mupirocin 2% ointment 22GM TP ONE (22:10)
[2018-11-12 23:01] VITALS: BP 155/83
== END 2018-11-12 23:04 | disposition home or self-care (01) ==
LOC: ER 17:35
DX: T87.81 Dehiscence of amputation stump (principal); Z89.512 Acquired absence of left leg below knee; Z98.890 Other specified postprocedural states; Z56.0 Unemployment, unspecified; Z59.0 Homelessness; Z79.899 Other long term (current) drug therapy; Y92.9 Unspecified place or not applicable
CPT/HCPCS: 96372; 99283; J1885; 96374

== ENCOUNTER 2018-12-20 21:32 | Inpatient (IN) | payer MEDICAID | END 2019-01-04 12:00 | disposition home or self-care (01) | LOC: ER 21:32 → ED HOLD 12-21 00:19 → ORTHO 4S 12-21 09:00 ==

== ENCOUNTER 2019-01-08 18:33 | Emergency (ER) | payer MEDICAID ==
[~2019-01-08] VITALS: Ht 142.2 cm; Wt 89.5 kg
[~2019-01-08 18:33] MED LIST changes: -AMLO5TAB4 PO; -BACDS PO; -COL100C PO; -FAMO20TA8 PO; -FER325T PO; -LACT1CAP26 PO; -MULT-1179 PO; +NO HOME MEDS
[2019-01-08 18:42] VITALS: BP 135/76
[2019-01-08] MEDS ORDERED: clotrimazole topical cream 15gm tube TP ONE (19:05)
[2019-01-08] MEDS ORDERED: zinc oxide ointment 30gm tube TP ONE (19:05)
[2019-01-08] MEDS ORDERED: fluconazole 150mg tablet PO ONE (19:05)
[2019-01-08] MEDS ORDERED: ondansetron 4mg rapidly disintigrating tab PO ONE (19:10)
[2019-01-08] MEDS ORDERED: pantoprazole 40mg Tablet.DR PO ONE (19:10)
[2019-01-08] MEDS ORDERED: sulfamethoxazole/trimethoprim DS (800/160mg) tablet PO ONE (19:10)
[2019-01-08] MEDS ORDERED: FLUC200T PO (20:05)
[2019-01-08] MEDS ORDERED: VITS42.53 TOP (20:05)
[2019-01-08] MEDS ORDERED: MYC15CR TOP (20:05)
[2019-01-08] MEDS ORDERED: SULF1TAB49 PO (20:05)
== END 2019-01-08 20:21 | disposition home or self-care (01) ==
LOC: ER 18:34
DX: L89.899 Pressure ulcer of other site, unspecified stage (principal); B37.2 Candidiasis of skin and nail; R11.2 Nausea with vomiting, unspecified; F10.129 Alcohol abuse with intoxication, unspecified; Z60.2 Problems related to living alone; Z59.0 Homelessness; Z56.0 Unemployment, unspecified; Z79.899 Other long term (current) drug therapy; Z95.1 Presence of aortocoronary bypass graft; Z98.890 Other specified postprocedural states; Y90.9 Presence of alcohol in blood, level not specified
CPT/HCPCS: 99284

== ENCOUNTER 2019-01-16 13:07 | Emergency (ER) | payer MEDICAID ==
[~2019-01-16] VITALS: Ht 137.2 cm; Wt 89.0 kg
[~2019-01-16 13:07] MED LIST changes: +FLUC200T PO; +MYC15CR TOP; +SULF1TAB49 PO; +VITS42.53 TOP
[2019-01-16 13:38] VITALS: BP 166/98
[2019-01-16] MEDS ORDERED: SULF1TAB49 PO (18:23)
--- NOTE | 2019-01-16 19:07 | NUR ---
assumed care of pt, pt is currently homeless, [facility] refuses to take pt, pt said he wants to stay here, pt has been well educated by Isa GARDNER about following up with wound clinic, pt is noncompliant with his health care, pt does have wheelchair, unable to transfer self without assist, very poor hygiene
== END 2019-01-16 20:03 | disposition home or self-care (01) ==
LOC: ER 13:08
DX: L03.116 Cellulitis of left lower limb (principal); L03.115 Cellulitis of right lower limb; Z89.512 Acquired absence of left leg below knee; Z89.511 Acquired absence of right leg below knee; Z56.0 Unemployment, unspecified; Z59.0 Homelessness; Z98.890 Other specified postprocedural states
CPT/HCPCS: 99283

== ENCOUNTER 2019-01-21 10:34 | Emergency (ER) | payer MEDICAID ==
[~2019-01-21] VITALS: Ht 134.6 cm; Wt 89.0 kg
[2019-01-21 14:24] LABS: BASOPHILS # (AUTO) 0.1 X10'3 (0-0.2); BASOPHILS % (AUTO) 1.2 % (0-1); EOSINOPHILS # (AUTO) 0.2 X10'3 (0-0.9); EOSINOPHILS % (AUTO) 3.1 % (0-6); HEMOGLOBIN 10.7 g/dl (14.0-17.9); LYMPHOCYTES # (AUTO) 2.1 X10'3 (1.1-4.8); LYMPHOCYTES % (AUTO) 29.3 % (21-51); MEAN CORPUSCULAR HEMOGLOBIN 25.1 PG (27.0-31.0); MEAN CORPUSCULAR HGB CONC 32.4 g/dL (33.0-36.5); MEAN CORPUSCULAR VOLUME 77.3 FL (78-98); MEAN PLATELET VOLUME 6.6 FL (7.4-10.4); MONOCYTES # (AUTO) 0.4 X10'3 (0-0.9); MONOCYTES % (AUTO) 5.7 % (2-12); NEUTROPHILS # (AUTO) 4.4 X10'3 (1.8-7.7); NEUTROPHILS % (AUTO) 60.7 % (42-75); PLATELET COUNT 372 X10'3 (140-440); RED BLOOD COUNT 4.27 X10'6 (4.70-6.10); RED CELL DISTRIBUTION WIDTH 18.1 % (11.5-14.5); WHITE BLOOD COUNT 7.2 X10'3 (4.5-11.0)
[2019-01-21 14:29] LABS: ALANINE AMINOTRANSFERASE 13 U/L (12-78); ALBUMIN 2.7 G/DL (3.4-5.0); ALBUMIN/GLOBULIN RATIO 0.5 (1.1-1.5); ALKALINE PHOSPHATASE 144 IU/L (46-116); ANION GAP 14 (8-16); ASPARTATE AMINO TRANSFERASE 32 U/L (10-37); BILIRUBIN,TOTAL 0.6 MG/DL (0.1-1.0); BLOOD UREA NITROGEN 15 MG/DL (7-18); BUN/CREATININE RATIO 14.3 (5.4-32.0); CALCIUM 9.1 MG/DL (8.5-10.1); CHLORIDE 95 MMOL/L (99-107); CREATININE 1.05 MG/DL (0.60-1.10); GLUCOSE 87 MG/DL (70-104); POTASSIUM 3.5 MMOL/L (3.5-5.1); SODIUM 132 MMOL/L (135-145); TOTAL CARBON DIOXIDE 22.7 MMOL/L (24-32); eGFR 71 ML/MIN
[2019-01-21] MEDS ORDERED: CEPH-572 PO (15:55)
--- NOTE | 2019-01-21 17:06 | NUR ---
Per social insurance specialist, cab will be here in 30 mins to pick up man pt and take him to [facility].
[2019-01-21 17:55] VITALS: BP 144/98
== END 2019-01-21 18:43 | disposition home or self-care (01) ==
LOC: ER 10:35
DX: T87.43 Infection of amputation stump, right lower extremity (principal); L89.309 Pressure ulcer of unspecified buttock, unspecified stage; F20.9 Schizophrenia, unspecified; R74.0 Nonspecific elevation of levels of transaminase and lactic acid dehydrogenase [LDH]; F10.20 Alcohol dependence, uncomplicated; Z59.0 Homelessness
CPT/HCPCS: 36415; 80053; 83605; 84145; 85025; 87040; 87070; 87186; 99284